=== PATIENT | female | born 1940 | race Caucasian/White ===

== ENCOUNTER 2019-07-21 16:43 | Inpatient (IN) | payer OTHER ==
--- NOTE | 2019-07-21 11:49 | R.PREADM ---
SCREENING DATE AND TIME 07/21/2019 10:47 (CDT) ANTICIPATED REHAB ADMISSION DATE 07/23/2019 REFERRING FACILITY [facility] REFERRAL DATE AND TIME 07/21/2019 10:47 (CDT) ACUTE ADMIT DATE 07/18/2019 Previous Rehabilitation(s): No. 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 Pasha Trevino M.D. [facility] [id number] [id number] NAME ERIC CASTILLO [address]ESS [address] [place] [place] [address] DATE OF 1940 AGE 79 SSN# [id number] GENDER female MARITAL STATUS RACE white ADMIT FROM 02 - [facility] PRE-HOSPITAL LIVING SETTING 01 - Home (private home/apt. board/care, assisted living, penitentiary, transitional living) HOME TYPE AND DETAILS Type of home: single family house # of steps to enter the residence: 0 # of steps within the residence: 0 # of levels in the residence: 1 PRE-HOSPITAL LIVING WITH Family/Relatives FAMILY SUPPORT Yes PRIMARY FAMILY CONTACT NAME Cesia Lima PRIMARY FAMILY CONTACT PHONE PHONE PRIMARY FAMILY CONTACT ON ADM.? no IS PRIMARY FAMILY CONTACT AUTH. REP.? no 1ST EMERGENCY CONTACT Cesia Lima 1ST CONTACT PHONE PHONE 1ST CONTACT ON ADM. no IS 1ST CONTACT AUTH. REP.? no PHONE 2ND CONTACT ON ADM.? no PATIENT EMPLOYMENT STATUS Retired (for age) PATIENT EMPLOYER No Employer PAYOR INFORMATION: 1ST PAYOR NAME Medicare 1ST PAYOR PHONE 1ST PAYOR INJURY/ILLNESS DUE TO ACCIDENT? No ANOTHER LIBERTARIAN RESPONSIBLE? No PRIMARY REHAB/ACUTE DIAGNOSIS: Sub-acute in the right superior temporal gyrus ONSET DATE 07/18/2019 REHAB IMPAIRMENT CATEGORY (PRES[place]): 01 Stroke (STR) MEETS 60% rule AFFECTED EXTREMITIES: LLE, and LUE PRIMARY DIAGNOSIS-RELATED SURGERIES: No surgeries related to the primary diagnosis were performed. COMORBID REHAB/ACUTE DIAGNOSES: - N/A afib HTN HLD Acute on chronic renal injury SUMMARY OF ACUTE HOSPITALIZATION: Pt. is a 79 yo Right-handed white female. On 07/18/2019 Pt. presented to [facility] with sudden onset of left-side weakness. On 07/18/2019 she was admitted to [facility] with diagnosis Sub-acute in the right superior temp oral gyrus . Her impairment category is Stroke 01 - Left Body (Right Brain) (01.1). Pre-morbidly, Pt. was independent/mod-I in Self-Care, Sphincter Control, Transfers Control, Locomotio n, Communication, and Social Cognition; and she had good Sphincter Control. Currently, she has deficits of Self-Care, Locomotion, Communication, Social Cognition, Endurance, Bal ance, Safety Awareness, and Transfers Control. Pt. is now referred to [facility] for acute in-patient rehabilitation in order to maximize patient's functional independence in activities of daily living, strength, ROM, and mobi lity. Patient has realistic goal of being discharged at assistance level 6-Gian to reside at Home with Fam yonis/Relatives. patient admitted July 20 with slurred speech. Patient admitted and treated for a stroke. PAST MEDICAL HISTORY Acute on chronic renal injury HLD HTN afib MEDICATION ALLERGIES: No Known Drug Allergies (NKDA) ENVIRONMENTAL ALLERGIES: - Substance Allergies None Known - Other Allergies None Known CODE STATUS: Full code WEIGHT/HEIGHT/BMI: WEIGHT 189 lbs HEIGHT 5' 6" BMI 30.5 DIET: - Diet Type Regular - Diet - Solid Texture Regular - Diet - Liquid Texture Regular - Tube Feed N/A REVIEW OF SYSTEMS: - Gen Alert and awake Lying in bed No apparent distress Oriented to: person, time, and place - Vital Signs Vital signs stable, afebrile - CVS RRR VITAL SIGNS Temperature: 96.9 F SBP/DBP: 138/82 Pulse: 95 Resp: 18 Vital signs stable, afebrile MEDICATIONS/TREATMENT: Other- See attached MAR (Medication Administration Record). CURRENT SPHINCTER CONTROL: Pre-hospital bladder status: incontinent # of bladder accidents in the last 7 days prior to screenin Pre-hospital bowel status: continent # of bowel accidents in the last 7 days prior to screenin Last Bowel Movement Date: 07/21/2019 DETAILED CURRENT FUNCTIONAL STATUS: - Bladder Bladder control device used: diaper accident frequency: Ind - No accidents in the past 7 days - Bowel accident frequency: Ind - No accidents in the past 7 days - Walking score based on distance walked: 1(<=50ft) - Wheelchair score based on distance traveled: 1(<=50ft) FUNCTIONAL STATUS: - Self-Care A. Eating Ind sup B. Grooming Ind sup C. Bathing Ind maxA D. Dressing - Upper Ind modA E. Dressing - Lower Ind maxA F. Toileting Ind Dep - Sphincter Control G: Bladder control Ind Dep H: Bowel control Ind Dep - Transfers Control I. Bed/Chair/Wheelchair Ind Ind J. Toilet Ind Brady K. Tub/Shower Ind Brady - Locomotion L. Walk/Wheelchair (C) Ind Dep L. Walk/Wheelchair (W) Ind Dep M. Stairs Ind ADNO - Communication N. Comprehension (B) Ind Brady O. Expression (B) Ind Brady - Social Cognition P. Social Interaction Ind Brady Q. Problem Solving Ind modA R. Memory Ind modA - Endurance Poor - Balance Poor - Safety Awareness Poor QI SCORES: - Self-Care A. Eating 05-Setup or clean-up assistance B. Oral hygiene 05-Setup or clean-up assistance C. Toileting hygiene 02-Substantial/maximal assistance E. Shower/bathe self 02-Substantial/maximal assistance F. Upper body dressing 03-Partial/moderate assistance G. Lower body dressing 02-Substantial/maximal assistance H. Putting on/taking off footwear 01-Dependent - Mobility A. Roll left and right 04-Supervision or touching assistance B. Sit to lying 04-Supervision or touching assistance C. Lying to sitting on side of bed 04-Supervision or touching assistance D. Sit to stand 04-Supervision or touching assistance E. Chair/nmc-ie-skpuy transfer 04-Supervision or touching assistance F. Toilet transfer 03-Partial/moderate assistance G. Car transfer 88-Not attempted due to medical condition or safety concerns I. Walk 10 feet 04-Supervision or touching assistance J. Walk 50 feet with two turns 88-Not attempted due to medical condition or safety concerns K. Walk 150 feet 88-Not attempted due to medical condition or safety concerns L. Walking 10 feet on uneven surfaces 88-Not attempted due to medical condition or safety concerns M. 1 step (curb) 88-Not attempted due to medical condition or safety concerns N. 4 steps 88-Not attempted due to medical condition or safety concerns O. 12 steps 88-Not attempted due to medical condition or safety concerns P. Picking up object 88-Not attempted due to medical condition or safety concerns R. Wheel 50 feet with two turns 88-Not attempted due to medical condition or safety concerns S. Wheel 150 feet 88-Not attempted due to medical condition or safety concerns - Bladder and Bowel Bladder continence 4-Always incontinent Bowel continence 3-Always incontinent CURRENT FUNC. DEFICITS: Self-Care, Locomotion, Communication, Social Cognition, Endurance, Balance, Safety Awareness, and Tra nsfers Control THERAPY NOTES FROM ACUTE CARE: Attached. SPECIAL NEEDS: - Safety Concerns Skin breakdown precautions needed due to skin breakdown risk PRECAUTIONS: - Weight Bearing Precaution WBAT left LE PATIENT NEEDS ACTIVE AND ONGOING THERAPEUTIC INTERVENTION OF MULTIPLE THERAPY DISCIPLINES, INCLUDING: - Occupational Therapy Cognitive Retraining. Visual Perceptual Training. - Dietary and Nutrition Adequate Nutrition. Nutritional Education. Nutritional Supplements. - Speech Therapy Cognitive Training. Expressive Language Skills. Memory Strategies. Receptive Language Skills. Speech Intelligibility Training. PATIENT NEEDS CLOSE MEDICAL SUPERVISION BY A REHABILITATION PHYSICIAN FOR: Bowel and Bladder Management Coordination of Treatment Team Medical and Co-Morbidity Management PATIENT REQUIRES 24X7 REHAB NURSING FOR MEDICAL AND FUNCTIONAL MGT. OF THE FOLLOWING DEFICITS: ADL's Ambulation Bowel and Bladder Management Cognition Communication Disease Management Medication Management Patient/Family Education Providing Safe Environment Transfers PATIENT REQUIRES INTENSIVE, COORDINATED INTERDISCIPLINARY APPROACH TO REHAB: Arranging Home Equipment/Services Discharge Planning Family Intervention/Training Skid Adzer/Case Management PATIENT REHAB POTENTIAL: Peyman CASTILLO is able and expected to receive 3 hours of individualized therapy daily on at least 5 of e very 7 days Peyman SWANNs prognosis for significant practical improvement within a reasonable period of time appea rs Good Expected level of measurable improvement will be of a practical value to Peyman CASTILLO's functional capa city or adaptations to impairments Has a viable Discharge Plan Medically appropriate; condition is sufficiently stable to participate in intensive rehab program DISCHARGE PLAN: - Estimated Length of Stay (days) 17. - Consensus on plan Discharge plan has been discussed with primary caregiver. Patient/Family is in agreement with the alonzo n. Primary caregiver is in agreement with the plan. - Patient/Family Goals Return home with assistance. - Planned Living Setting Upon Discharge Home, to live with Family/Relatives. RECOMMENDED CARE LEVEL: IRF RECOMMENDATION DETAILS: Recommended Admission to Comprehensive Rehabilitation Program to Increase Functional [place] SCREENER'S COMPLETENESS CONFIRMATION: - Screening Confirmation The patient data collection on this preadmission screening form is finished PHYSICIANS REVIEW AND ADMISSION DETERMINATION Admit - Based on my review of the Pre-Admission Screening results, in my medical judgment and experie nce, I concur with the findings and recommend admission to [facility], as this patient requires an IRF level of care. SIGNATURE PANEL: Clinical Liaison - [electronically] signed by Lay Diez on 07/21/2019 at 11:13 (CDT) Clinical Liaison - [electronically] signed by Paul Pardo PT on 07/21/2019 at 11:31 (CDT) Physician Reviewer - [electronically] signed by Dr. Pasha Trevino M.D. on 07/21/2019 at 11:48 (CDT )
[2019-07-22] MEDS ORDERED: ALBUTEROL INHALER 60 PUFF/8 GM IH PRN (18:51)
[2019-07-22] MEDS ORDERED: HYDROCODONE/APAP 5/325 MG TAB PO PRN (19:00)
[2019-07-22] MEDS ORDERED: HEPARIN 5000 UNIT/ML 1 ML VIAL SQ SCH (20:00)
[2019-07-22] MEDS ORDERED: ALPRAZOLAM 1 MG TABLET PO SCH (21:00)
[2019-07-22] MEDS: CEPHALEXIN 250 MG CAP PO SCH (21:09)
[2019-07-22] MEDS: MIRTAZAPINE 15 MG TAB PO SCH (21:09)
[2019-07-22] MEDS: FAMOTIDINE 20 MG TAB PO SCH (21:10)
[2019-07-22] MEDS: ATORVASTATIN 20 MG TAB PO SCH (21:10)
[2019-07-22] MEDS: GABAPENTIN 100 MG CAP PO SCH (21:10)
[2019-07-22] MEDS: APIXABAN 5 MG TABLET PO SCH (21:10)
[2019-07-23] MEDS: ATENOLOL 50 MG TAB PO SCH (05:15)
[2019-07-23 05:55] LABS: Absolute Lymphocytes (CBC) 1.4 K/uL (0.7-4.9); Basophils % 1.1 % (0-1.3); MPV 7.1 fL (7.6-11.3); RBC Red Blood Cell Count 4.17 M/uL (3.86-4.86)
[2019-07-23 06:11] LABS: Potassium 3.9 mmol/L (3.5-5.1)
[2019-07-23] MEDS: LEVOTHYROXINE SOD 0.1 MG TAB PO SCH (06:52)
[2019-07-23] MEDS: CEPHALEXIN 250 MG CAP PO SCH ×2 (08:00→21:31)
[2019-07-23] MEDS ORDERED: CLOPIDOGREL 75 MG TABLET PO SCH (08:00)
[2019-07-23] MEDS: APIXABAN 5 MG TABLET PO SCH ×2 (08:48→21:32)
[2019-07-23] MEDS: GABAPENTIN 100 MG CAP PO SCH ×3 (08:48→21:31)
[2019-07-23] MEDS: FAMOTIDINE 20 MG TAB PO SCH ×2 (08:48→21:31)
--- NOTE | 2019-07-23 09:29 | P.RH.PN ---
Estimated Length of Stay: 14 Expected Discharge Date: 08/04/19 Discharge Disposition Plan: Home Family Support: Yes Vital Signs: Last Vital Signs Temp 97.1 F 07/23/19 06:57 Pulse 88 07/23/19 06:57 Resp 14 07/23/19 06:57 BP 135/75 07/23/19 06:57 Pulse Ox 97 07/23/19 06:57 Laboratory: Laboratory Last Values WBC 5.6 K/uL (4.3-10.9) 07/23/19 05:33 RBC 4.17 M/uL (3.86-4.86) 07/23/19 05:33 Hgb 12.5 g/dL (12.0-15.0) 07/23/19 05:33 Hct 36.0 % (36.0-45.0) 07/23/19 05:33 MCV 86.4 fL (80-100) 07/23/19 05:33 MCH 29.9 pg (27.0-35.0) 07/23/19 05:33 MCHC 34.6 g/dL (32.0-36.0) 07/23/19 05:33 RDW 14.2 % (12.1-15.2) 07/23/19 05:33 Plt Count 281 K/uL (152-406) 07/23/19 05:33 MPV 7.1 fL (7.6-11.3) L 07/23/19 05:33 Neutrophils % 57.6 % (41.7-73.7) 07/23/19 05:33 Lymphocytes % 25.0 % (15.3-44.8) 07/23/19 05:33 Monocytes % 10.3 % (3.3-12.3) 07/23/19 05:33 Eosinophils % 6.0 % (0-4.4) H 07/23/19 05:33 Basophils % 1.1 % (0-1.3) 07/23/19 05:33 Absolute Neutrophils 3.2 K/uL (1.8-8.0) 07/23/19 05:33 Absolute Lymphocytes 1.4 K/uL (0.7-4.9) 07/23/19 05:33 Absolute Monocytes 0.6 K/uL (0.1-1.3) 07/23/19 05:33 Absolute Eosinophils 0.3 K/uL (0-0.5) 07/23/19 05:33 Absolute Basophils 0.1 K/uL (0-0.5) 07/23/19 05:33 Sodium 143 mmol/L (136-145) 07/23/19 05:33 Potassium 3.9 mmol/L (3.5-5.1) 07/23/19 05:33 Chloride 110 mmol/L (98-107) H 07/23/19 05:33 Carbon Dioxide 29 mmol/L (21-32) 07/23/19 05:33 BUN 28 mg/dL (7-18) H 07/23/19 05:33 Creatinine 1.45 mg/dL (0.55-1.3) H 07/23/19 05:33 Estimated GFR 35 mL/min (=/>90) L 07/23/19 05:33 Glucose 85 mg/dL (74-106) 07/23/19 05:33 Calcium 9.2 mg/dL (8.5-10.1) 07/23/19 05:33 Magnesium 2.0 mg/dL (1.8-2.4) 07/23/19 05:33 Albumin 3.0 g/dL (3.4-5.0) L 07/23/19 05:33 Prealbumin 14.0 mg/dL (20-40) L 07/23/19 05:33 Weight: 166 lb 14.4 oz Wound Present: No Physician Update: 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 She has a UTI and in on antibiotics. She will be evaluated by physical and speech therapy. She has afib and will be on aspirin 81 mg and Eliquis 5 mg bid. She is on mechanical soft diet. Summary: Patient's care plan and terminal worker goals have been reviewed and revised as necessary. Please see the Rehabilitation Signature page for all necessary signatures.
[2019-07-23] MEDS: ASPIRIN 81 MG CHEWABLE TABLET PO SCH (12:07)
--- NOTE | 2019-07-23 12:55 | EKG ---
Test Date: 2019-07-22 Test Time: 19:34:01 Life Skills Instructor: RT Porter MEASUREMENT RESULTS: Intervals: Rate: 93 [place]: QRSD: 104 QT: 386 QTc: 479 [place]: P: [place]: QRS: -44 T: 38 INTERPRETIVE STATEMENTS: Atrial fibrillation Left axis deviation Abnormal ECG Compared to ECG 11/11/2001 16:41:00 Left-axis deviation now present Sinus rhythm no longer present ST (T wave) deviation no longer present Electronically Signed On 07-23-19 12:54:18 CDT by Bakari Browning
--- NOTE | 2019-07-23 12:57 | R.HP ---
FACILITY: [facility] ENCOUNTER DATE AND TIME: 07/23/2019 12:48 (CDT) MR#: [id number] NAME ERIC CASTILLO ADDRESS: [address] [place] [address] CITY: [place] STATE: [place]IP [id number] PHONE: DATE OF : 1940 AGE: 79 SSN# [id number] GENDER: Female DEXTERITY Right-handed MARITAL STATUS RACE White PRE-HOSPITAL LIVING SETTING 01 - Home (private home/apt. board/care, assisted living, [facility], transitional living) PRE-HOSPITAL LIVING WITH Family/Relatives ENCOUNTER PHYSICIAN: Dr. aPsha Trevino M.D. REFERRING DOCTOR: duc Elizabeth DATE OF ADMISSION: 07/22/2019 18:14 (CDT) REFERRING FACILITY [facility] HOME TYPE AND DETAILS: Type of home: single family house # of steps to enter the residence: 0 # of steps within the residence: 0 # of levels in the residence: 1 ADMISSION DIAGNOSIS: Sub-acute in the right superior temporal gyrus ONSET DATE: 07/18/2019 PRIMARY DIAGNOSIS-RELATED SURGERIES: No surgeries related to the primary diagnosis were performed. SECONDARY/COMORBID DIAGNOSES (TIERED): - N/A afib HTN HLD Acute on chronic renal injury HISTORY OF PRESENT ILLNESS (HPI): Pt. is a 79 yo Right-handed white female. On 07/18/2019 Pt. presented to [facility] with sudden onset of left-side weakness. On 07/18/2019 she was admitted to [facility] with diagnosis Sub-acute in the right superior temp oral gyrus . Her impairment category is Stroke 01 - Left Body (Right Brain) (01.1). Pre-morbidly, Pt. was independent/mod-I in Self-Care, Sphincter Control, Transfers Control, Locomotio n, Communication, and Social Cognition; and she had good Sphincter Control. Currently, she has deficits of Self-Care, Locomotion, Communication, Social Cognition, Endurance, Bal ance, Safety Awareness, and Transfers Control. Pt. is now referred to [facility] for acute in-patient rehabilitation in order to maximize patient's functional independence in activities of daily living, strength, ROM, and mobi lity. Patient has realistic goal of being discharged at assistance level 6-Gian to reside at Home with Fam yonis/Relatives. patient admitted July 20 with slurred speech. Patient admitted and treated for a stroke. MEDICATION ALLERGIES: No Known Drug Allergies (NKDA) ENVIRONMENTAL ALLERGIES: - Substance Allergies None Known - Other Allergies None Known PAST MEDICAL HISTORY: Acute on chronic renal injury HLD HTN afib FAMILY HISTORY: Family history is not contributory. SOCIAL HISTORY: - Home Living Family/Relatives REVIEW OF SYSTEMS: - Gen No Chills Fatigue No Fever - Eyes No Double Vision No itchiness - ENMT Difficulty Swallowing - CVS No Chest Discomfort No Chest Pain No Fatigue No Weight Gain - Resp No Cough No Shortness of Breath - GI Continent No Abdominal Pain No Constipation No Diarrhea - Continent No Kidney Pain No Painful Urination No Urinary Urgency - MSK No Joint Pain Muscle Cramps Stiffness - Skin No Itching No Rash No Suspicious Lesions - Neuro Coordination Difficulty No Difficulty with Concentration No Memory Loss No Seizures Weakness - Psych No Anxiety No Depression No HIV Exposure No Persistent Infections No Seasonal Allergies - Endo No Cold/Heat Intolerance No Excessive Hunger No Excessive Thirst No Excessive Urination PHYSICAL EXAM - Gen Alert and awake Lying in bed No apparent distress Oriented to: person, time, and place - Skin No breakdown No abnormalities - Eyes No abnormalities - ENMT No abnormalities - Neck No abnormalities - CVS RRR - Chest No abnormalities - Abd Soft - GI + bowel sounds Deferred - No abnormalities - Ext No significant edema. - MSK 4+/5 weakness in left upper and lower extremity - Neuro 4/5 strength left upper and lower extremities. - Psych No abnormalities VITAL SIGNS Temperature: 96.9 F SBP/DBP: 138/82 Pulse: 95 Resp: 18 NURSING: - Shower allowing shower - Bladder care per protocol - Skin care per protocol PRECAUTIONS: - Weight Bearing Precaution WBAT left LE ACTIVITIES OOB only with supervision FUNCTIONAL STATUS: - Self-Care A. Eating Ind sup B. Grooming Ind sup C. Bathing Ind maxA D. Dressing - Upper Ind modA E. Dressing - Lower Ind maxA F. Toileting Ind Dep - Sphincter Control G: Bladder control Ind Dep H: Bowel control Ind Dep - Transfers Control I. Bed/Chair/Wheelchair Ind Ind J. Toilet Ind Brady K. Tub/Shower Ind Brady - Locomotion L. Walk/Wheelchair (C) Ind Dep L. Walk/Wheelchair (W) Ind Dep M. Stairs Ind ADNO - Communication N. Comprehension (B) Ind Brady O. Expression (B) Ind Brady - Social Cognition P. Social Interaction Ind Brady Q. Problem Solving Ind modA R. Memory Ind modA - Endurance Poor - Balance Poor - Safety Awareness Poor QI SCORES: - Self-Care A. Eating 05-Setup or clean-up assistance B. Oral hygiene 05-Setup or clean-up assistance C. Toileting hygiene 02-Substantial/maximal assistance E. Shower/bathe self 02-Substantial/maximal assistance F. Upper body dressing 03-Partial/moderate assistance G. Lower body dressing 02-Substantial/maximal assistance H. Putting on/taking off footwear 01-Dependent - Mobility A. Roll left and right 04-Supervision or touching assistance B. Sit to lying 04-Supervision or touching assistance C. Lying to sitting on side of bed 04-Supervision or touching assistance D. Sit to stand 04-Supervision or touching assistance E. Chair/[id number] transfer 04-Supervision or touching assistance F. Toilet transfer 03-Partial/moderate assistance G. Car transfer 88-Not attempted due to medical condition or safety concerns I. Walk 10 feet 04-Supervision or touching assistance J. Walk 50 feet with two turns 88-Not attempted due to medical condition or safety concerns K. Walk 150 feet 88-Not attempted due to medical condition or safety concerns L. Walking 10 feet on uneven surfaces 88-Not attempted due to medical condition or safety concerns M. 1 step (curb) 88-Not attempted due to medical condition or safety concerns N. 4 steps 88-Not attempted due to medical condition or safety concerns O. 12 steps 88-Not attempted due to medical condition or safety concerns P. Picking up object 88-Not attempted due to medical condition or safety concerns R. Wheel 50 feet with two turns 88-Not attempted due to medical condition or safety concerns S. Wheel 150 feet 88-Not attempted due to medical condition or safety concerns - Bladder and Bowel Bladder continence 4-Always incontinent Bowel continence 3-Always incontinent CURRENT FUNC. DEFICITS: Self-Care, Locomotion, Communication, Social Cognition, Endurance, Balance, Safety Awareness, and Tra nsfers Control MEDICATIONS: - Other See attached MAR (Medication Administration Record) ASSESSMENT: Pt. is a 79 yo Right-handed white female.On 07/18/2019 Pt. presented to [facility] with sudden o nset of left-side weakness.On 07/18/2019 she was admitted to [facility] with diagnosis Sub-acute in the right superior temporal gyrus .Her impairment category is Stroke 01 - Left Body (Right Brain ) (01.1).Pre-morbidly, Pt. was independent/mod-I in Self-Care, Sphincter Control, Transfers Control, Locomotion, Communication, and Social Cognition; and she had good Sphincter Control.Currently, she alvarez s deficits of Self-Care, Locomotion, Communication, Social Cognition, Endurance, Balance, Safety Awar eness, and Transfers Control.Pt. is now referred to [facility] for acute in-pa tient rehabilitation in order to maximize patient's functional independence in activities of daily li ving, strength, ROM, and mobility.- Rehab Goal Patient has realistic goal of being discharged at assistance level 6-Gian to reside at Home with Fam yonis/Relatives. patient admitted July 20 with slurred speech. Patient admitted and treated for a stroke.REHAB PL AN: for Dementia, TBI, Stroke, or others - Physical Therapy Gait dysfunction - to improve, our physical therapists will perform initial evaluation of pt's status upon admission and devise an individualized program for Gait Training, and Wheel Chair mobility Inability to transfer - to improve, our physical therapists will perform initial evaluation of pt's s tatus upon admission and devise an individualized program for Bed mobility Need for home safety evaluation - to improve, our physical therapists will perform initial evaluation of pt's status upon admission and devise an individualized program for Home Evaluation Need in caregiver upon discharge - to improve, our physical therapists will perform initial evaluatio n of pt's status upon admission and devise an individualized program for Caregiver Training New precaution - to improve, our physical therapists will perform initial evaluation of pt's status u rabia admission and devise an individualized program for Patient precaution education Edema - to improve, our physical therapists will perform initial evaluation of pt's status upon admi ssion and devise an individualized program for Elevation Training, and Lymphedema Therapy Poor balance - to improve, our physical therapists will perform initial evaluation of pt's status upo n admission and devise an individualized program for Balance Training Poor endurance - to improve, our physical therapists will perform initial evaluation of pt's status u rabia admission and devise an individualized program for Endurance Training Weakness - to improve, our physical therapists will perform initial evaluation of pt's status upon ad mission and devise an individualized program for Aquatic Therapy, Neuromuscular Reeducation, and Stre ngthening Achieving independence - to improve, our physical therapists will perform initial evaluation of pt's status upon admission and devise an individualized program for Community Reintegration Activities - Occupational Therapy ADL deficits - to improve, our occupation therapists will perform initial evaluation of pt's status u rabia admission and devise an individualized program for Bathing, Bed mobility, Community Reintegration , Cooking, Dressing, Eating, Fine Motor Skills, Grooming, Homemaking, Kitchen Mobility, Laundry, Ann-Marie ent Education, Safety Awareness, Splinting - Positioning, Transfers(Toilet, Tub, Shower), and Wheel C hair Management Cognitive deficits - to improve, our occupation therapists will perform initial evaluation of pt's st atus upon admission and devise an individualized program for Cognition - orientation Need for home care and home health aides teacher - to improve, our occupation therapists will perform initial evaluation of pt's s tatus upon admission and devise an individualized program for Caregiver Training Weakness - to improve, our occupation therapists will perform initial evaluation of pt's status upon admission and devise an individualized program for Aquatic Therapy, Balance, Endurance, UE ROM, and U E strengthening MEDICAL PLAN: - Diet Type Start Regular - Diet - Liquid Texture Start Regular - Tube Feed Start N/A - Bladder care per protocol - Weight Bearing Precaution WBAT left LE - Skin care per protocol - Other See attached MAR (Medication Administration Record) - Diet - Solid Texture Regular - Shower shower DISCHARGE PLAN: - Estimated Length of Stay (days) 17. - Consensus on plan Discharge plan has been discussed with primary caregiver. Patient/Family is in agreement with the alonzo n. Primary caregiver is in agreement with the plan. - Patient/Family Goals Return home with assistance. - Planned Living Setting Upon Discharge Home, to live with Family/Relatives. SIGNATURE PANEL: (CDT)
--- NOTE | 2019-07-23 12:59 | PAPE ---
PATIENT: [facility] MR# [id number] REFERRING DOCTOR duc Elizabeth EVALUATION DATE AND TIME 07/23/2019 12:57 (CDT) NAME ERIC CASTILLO DATE OF 1940 AGE 79 PHONE SSN# [id number] GENDER female EVALUATING PHYSICIAN Dr. Pasha Trevino M.D. ADMISSION DIAGNOSIS: Sub-acute in the right superior temporal gyrus ONSET DATE 07/18/2019 SECONDARY/COMORBID DIAGNOSES TIERED: - N/A afib HTN HLD Acute on chronic renal injury POST-ADMISSION FUNCTIONAL/MEDICAL STATUS: - Bladder Same Bladder control device used: diaper Same accident frequency: Ind - No accidents in the past 7 days - Bowel Same accident frequency: Ind - No accidents in the past 7 days - Walking Same score based on distance walked: 1(<=50ft) - Wheelchair Same score based on distance traveled: 1(<=50ft) STATUS CHANGE EVALUATION: No change in Functional or Medical Status is identified compared with Pre-Admission screening. PATIENT NEEDS CLOSE MEDICAL SUPERVISION BY A REHABILITATION PHYSICIAN FOR: Bowel and Bladder Management Coordination of Treatment Team Medical and Co-Morbidity Management PATIENT REQUIRES 24X7 REHAB NURSING FOR MEDICAL AND FUNCTIONAL MGT. OF THE FOLLOWING DEFICITS: ADL's Ambulation Bowel and Bladder Management Cognition Communication Disease Management Medication Management Patient/Family Education Providing Safe Environment Transfers PATIENT REQUIRES INTENSIVE, COORDINATED INTERDISCIPLINARY APPROACH TO REHAB: Arranging Home Equipment/Services Discharge Planning Family Intervention/Training Sponge Maker/Case Management LIST OF IDENTIFIED AND POTENTIAL PROBLEMS: Alteration in leisure activities Bladder, Incontinence Bowel, Incontinence Infection, Actual or Potential Mobility Impaired Pain, Alteration in Comfort Self Care Deficit Skin Integrity, Actual or Potential Urinary Tract Infection (UTI), Actual or Potential PATIENT COULD BE AT RISK FOR COMPLICATIONS FROM ADVERSE MEDICAL CONDITIONS DUE TO HIS/HER COMORBIDITI ES AND THE RIGORS OF THE INTENSIVE REHABILLITATION PROGRAM. METHODS OR INTERVENTIONS TO AVOID COMPLIC ATIONS INCLUDE: - Bleeding Stroke patients assessed for lethargy or change in status. - Infection Clinical staff to assess and manage the signs and symptoms of infection including fever, redness, war mth, etc. - Urinary Tract Infection - Aspiration Clinical staff will assess and manage coughing, drooling, congestion. - Falls Patient will be evaluated for Fall Precautions and will be placed on Fall Precautions as indicated pe r protocol. - Skin Breakdown Nursing will assess skin daily using assessment tool and will place on Skin Breakdown Precautions as indicated per protocol. - Pain Clinical staff may employ non-medication methods such as massage, distraction, decrease stimulus, etc . as needed. Clinical staff will assess patient's pain level every shift per protocol to assess and e nsure pain management effectiveness. Medications will be given and the pain level re-assessed. PRELIMINARY PLAN OF CARE: - Physical Therapy Patient needs Physical Therapy for a daily minimum of 1.5 hours at least 5 out of 7 days, to improve: Mobility, Strengthening, Transfers, Stretching, ROM, Endurance, Ability to manage stairs, Gait, and Balance. - Speech Therapy Patient needs Speech Therapy for a daily minimum of 0.5 hours at least 5 out of 7 days, to improve: S wallowing, Cognition, Language Skills, and Compensatory Strategies. - Rehabilitation Nursing Patient requires 24x7 Rehabilitation Nursing for: Pain Issues, Identifying and preventing risk factor s, Monitoring and reporting current medical conditions, Assisting with ambulation and transfer, Naveen ting with all ADL-s, Teaching patients about disease process and medications, Family teaching, Provid ing safe environment, Bowel and Bladder Issues, Skin Integrity, and Medication Management. Patient needs Sponge Maker and/or Case Management for: Discharge Planning, Arranging Home Equipmen t or Services, and Family Interventions. - Dietary and Nutrition Services Patient needs Dietary and Nutrition Services for: Adequate Nutrition, Nutritional Supplements, and Nu tritional Education. - Occupational Therapy Patient needs Occupational Therapy for a daily minimum of 1.5 hours at least 5 out of 7 days, to impr ove Activities of Daily Living, including: Eating, Grooming, Bathing, Dressing, Toileting, Toilet Tra nsfers, Community Reintegration, Higher functional activities, Adaptive Equipment, Splinting, Househo ld Tasks, and Other activities as determined. POTENTIAL FUNCTIONAL GOALS FOR PATIENT TO ACHIEVE BY DISCHARGE: - Safety Precaution Patient will remain free from falls or injury at time of discharge. - Bed Mobility Patient will perform bed mobility at 4-Brady level of assistance. - Transfers Patient will complete transfers from bed to chair at 4-Brady level of assistance. - Mobility Patient will ambulate 150 ft with 4-Brady level of assistance with RW. PATIENT REHAB POTENTIAL PadmajaTr CASTILLO is able and expected to receive 3 hours of individualized therapy daily on at least 5 of e very 7 days L. BARBREE's prognosis for significant practical improvement within a reasonable period of time appea rs Good Expected level of measurable improvement will be of a practical value to [place] functional capa city or adaptations to impairments Has a viable Discharge Plan Medically appropriate; condition is sufficiently stable to participate in intensive rehab program DISCHARGE PLAN: - Estimated Length of Stay (days) 17. - Consensus on plan Discharge plan has been discussed with primary caregiver. Patient/Family is in agreement with the alonzo n. Primary caregiver is in agreement with the plan. - Patient/Family Goals Return home with assistance. - Planned Living Setting Upon Discharge Home, to live with Family/Relatives. CONCLUSION ON REHABILITATION NECESSITY: I have evaluated patient's pre-admission functional status and, comparing it to the patient's post-ad mission functional status now, I conclude that the pre-admission assessment was accurate. Patient's c ondition on admission supports the medical necessity of admission to IR[facility]. It is safe to proceed with patient's therapy program. SIGNATURE PANEL: (CDT)
--- NOTE | 2019-07-23 15:16 | RAD REPORT ---
EXAM DESCRIPTION: RAD - Barium Swallow Modified - 07/23/2019 3:05 pm CLINICAL HISTORY: dysphagia, s/p stroke COMPARISON: No comparisons TECHNIQUE: The patient was given liquid, semi-solid and solid forms of barium. Lateral view fluorosc opic imaging was performed in conjunction with speech pathology service. FINDINGS: laryngeal pentration : cleared by thin by straw and nectar (cup sip) pharyngeal residue:: vallecular moderate with honey , mild with all others , pyriform mild with all , posterior wall mild with all other: 1 sec swallow delay , min esophageal stasis Total fluoroscopy time: 2 minutes and 34 seconds
--- NOTE | 2019-07-23 15:17 | RAD REPORT ---
EXAM DESCRIPTION: RAD - Chest Single View - 07/23/2019 2:59 pm CLINICAL HISTORY: r/o aspiration pnuemonia Chest pain. COMPARISON: No comparisons FINDINGS: Portable technique limits examination quality. The lungs are grossly clear. The heart is mildly prominent in size. No displaced fractures. IMPRESSION: No acute intrathoracic process suspected.
[2019-07-23] MEDS: INFLUENZA VACCINE (for 3y+) 0.5 ML DOSE IMVAC ONE ×2 (19:00→22:00)
[2019-07-23] MEDS ORDERED: PROMOD 30 ML DOSE PO SCH (20:00)
[2019-07-23] MEDS: DOCUSATE NA/SENNA CONC 1 TAB PO PRN (21:31)
[2019-07-23] MEDS: ATORVASTATIN 20 MG TAB PO SCH (21:31)
[2019-07-23] MEDS: MIRTAZAPINE 15 MG TAB PO SCH (21:32)
--- NOTE | 2019-07-24 02:14 | FAST ---
SHIFT START DATE/TIME: 07/23/2019 19:00 (CDT) SHIFT END DATE/TIME: 07/24/2019 07:00 (CDT) NAME ERIC CASTILLO DATE OF : 1940 DATE OF ADMISSION: 07/22/2019 18:14 (CDT) PHONE: AGE: 79 N# [id number] GENDER: Female ENCOUNTER PHYSICIAN: Dr. Pasha Trevino M.D. ADMISSION DIAGNOSIS: - Stroke 01 - Left Body (Right Brain) (01.1) Sub-acute in the right superior temporal gyrus . EATING: Not assessed/no information CODE: - ORAL HYGIENE: Not assessed/no information CODE: - TOILETING HYGIENE: TOILETING HYGIENE - STEP 1: Does the patient complete the activity by him/herself with no assistance (physical, verbal/nonverbal cueing, setup/clean-up)? No. TOILETING HYGIENE - STEP 2: Does the patient need only setup/clean-up assistance from one helper? Yes. 1. [id number] ADMISSION PERFORMANCE: Setup or clean-up assistance CODE: 05 BATHING: Not assessed/no information CODE: - DRESSING - UPPER BODY: Not assessed/no information CODE: - DRESSING - LOWER BODY: Not assessed/no information CODE: - PUTTING ON/TAKING OFF FOOTWEAR: Not assessed/no information CODE: - ROLL LEFT AND RIGHT: ROLL LEFT AND RIGHT - STEP 1: Does the patient complete the activity by him/herself with no assistance (physical, verbal/nonverbal cueing, setup/clean-up)? No. ROLL LEFT AND RIGHT - STEP 2: Does the patient need only setup/clean-up assistance from one helper? Yes. ROLL LEFT AND RIGHT - STEP 3: Does the patient need only verbal/nonverbal cueing or touching/steadying/contact guard assistance fro m one helper? Yes. 1. [id number] ADMISSION PERFORMANCE: Supervision or touching assistance CODE: 04 SIT TO LYING: SIT TO LYING - STEP 1: Does the patient complete the activity by him/herself with no assistance (physical, verbal/nonverbal cueing, setup/clean-up)? No. SIT TO LYING - STEP 2: Does the patient need only setup/clean-up assistance from one helper? No. SIT TO LYING - STEP 3: Does the patient need only verbal/nonverbal cueing or touching/steadying/contact guard assistance fro m one helper? Yes. 1. [id number] ADMISSION PERFORMANCE: Supervision or touching assistance CODE: 04 LYING TO SITTING: LYING TO SITTING ON SIDE OF BED - STEP 1: Does the patient complete the activity by him/herself with no assistance (physical, verbal/nonverbal cueing, setup/clean-up)? No. LYING TO SITTING ON SIDE OF BED - STEP 2: Does the patient need only setup/clean-up assistance from one helper? Yes. 1. [id number] ADMISSION PERFORMANCE: Setup or clean-up assistance CODE: 05 SIT TO STAND: SIT TO STAND - STEP 1: Does the patient complete the activity by him/herself with no assistance (physical, verbal/nonverbal cueing, setup/clean-up)? No. SIT TO STAND - STEP 2: Does the patient need only setup/clean-up assistance from one helper? Yes. 1. [id number] ADMISSION PERFORMANCE: Setup or clean-up assistance CODE: 05 TRANSFERS: BED, CHAIR: CHAIR/[id number] TRANSFER - STEP 1: Does the patient complete the activity by him/herself with no assistance (physical, verbal/nonverbal cueing, setup/clean-up)? No. CHAIR/[id number] TRANSFER - STEP 2: Does the patient need only setup/clean-up assistance from one helper? No. CHAIR/[id number] TRANSFER - STEP 3: Does the patient need only verbal/nonverbal cueing or touching/steadying/contact guard assistance fro m one helper? Yes. 1. [id number] ADMISSION PERFORMANCE: Supervision or touching assistance CODE: 04 TRANSFER TOILET: TOILET TRANSFER - STEP 1: Does the patient complete the activity by him/herself with no assistance (physical, verbal/nonverbal cueing, setup/clean-up)? No. TOILET TRANSFER - STEP 2: Does the patient need only setup/clean-up assistance from one helper? Yes. 1. [id number] ADMISSION PERFORMANCE: Setup or clean-up assistance CODE: 05 TRANSFERS: CAR: Not assessed/no information CODE: - WALK 10 FEET: Not assessed/no information CODE: - 1 STEP (CURB): Not assessed/no information CODE: - DOES THE PATIENT USE A WHEELCHAIR/SCOOTER? Q1. DOES THE PATIENT USE A WHEELCHAIR/SCOOTER?: Yes CODE: 1 WHEEL 50 FEET WITH TWO TURNS: Not assessed/no information CODE: - INDICATE THE TYPE OF WHEELCHAIR/SCOOTER USED: CODE: EXPR WHEEL 150 FEET: Not assessed/no information CODE: - INDICATE THE TYPE OF WHEELCHAIR/SCOOTER USED: CODE: EXPR BLADDER AND BOWEL: H350. BLADDER CONTINENCE (3-DAY ASSESSMENT PERIOD): Always continent (no documented incontinence) CODE: 0 H400. BOWEL CONTINENCE (3-DAY ASSESSMENT PERIOD): Always continent CODE: 0
[2019-07-24] MEDS: ATENOLOL 50 MG TAB PO SCH (05:09)
[2019-07-24] MEDS: LEVOTHYROXINE SOD 0.1 MG TAB PO SCH (07:02)
[2019-07-24] MEDS: CEPHALEXIN 250 MG CAP PO SCH ×2 (08:00→20:16)
[2019-07-24] MEDS: ASPIRIN 81 MG CHEWABLE TABLET PO SCH (08:50)
[2019-07-24] MEDS: APIXABAN 5 MG TABLET PO SCH ×2 (08:50→20:17)
[2019-07-24] MEDS: GABAPENTIN 100 MG CAP PO SCH ×3 (08:50→20:16)
[2019-07-24] MEDS: FAMOTIDINE 20 MG TAB PO SCH ×2 (08:51→20:16)
--- NOTE | 2019-07-24 10:28 | FAST ---
SHIFT START DATE/TIME: 07/23/2019 07:00 (CDT) SHIFT END DATE/TIME: 07/23/2019 19:00 (CDT) NAME ERIC CASTILLO DATE OF : 1940 DATE OF ADMISSION: 07/22/2019 18:14 (CDT) PHONE: AGE: 79 N# [id number] GENDER: Female ENCOUNTER PHYSICIAN: Dr. Pasha Trevino M.D. ADMISSION DIAGNOSIS: - Stroke 01 - Left Body (Right Brain) (01.1) Sub-acute in the right superior temporal gyrus . EATING: EATING - STEP 1: Does the patient complete the activity by him/herself with no assistance (physical, verbal/nonverbal cueing, setup/clean-up)? No. EATING - STEP 2: Does the patient need only setup/clean-up assistance from one helper? No. EATING - STEP 3: Does the patient need only verbal/nonverbal cueing or touching/steadying/contact guard assistance fro m one helper? No. EATING - STEP 4: Does the patient need physical assistance - for example lifting or trunk support from one helper - wi th the helper providing less than half of the effort? Yes. 1. [id number] ADMISSION PERFORMANCE: Partial/moderate assistance CODE: 03 ORAL HYGIENE: ORAL HYGIENE - STEP 1: Does the patient complete the activity by him/herself with no assistance (physical, verbal/nonverbal cueing, setup/clean-up)? No. ORAL HYGIENE - STEP 2: Does the patient need only setup/clean-up assistance from one helper? No. ORAL HYGIENE - STEP 3: Does the patient need only verbal/nonverbal cueing or touching/steadying/contact guard assistance fro m one helper? Yes. 1. [id number] ADMISSION PERFORMANCE: Supervision or touching assistance CODE: 04 TOILETING HYGIENE: TOILETING HYGIENE - STEP 1: Does the patient complete the activity by him/herself with no assistance (physical, verbal/nonverbal cueing, setup/clean-up)? No. TOILETING HYGIENE - STEP 2: Does the patient need only setup/clean-up assistance from one helper? No. TOILETING HYGIENE - STEP 3: Does the patient need only verbal/nonverbal cueing or touching/steadying/contact guard assistance fro m one helper? No. TOILETING HYGIENE - STEP 4: Does the patient need physical assistance - for example lifting or trunk support from one helper - wi th the helper providing less than half of the effort? Yes. 1. [id number] ADMISSION PERFORMANCE: Partial/moderate assistance CODE: 03 BATHING: Not assessed/no information CODE: - DRESSING - UPPER BODY: Not assessed/no information CODE: - DRESSING - LOWER BODY: Not assessed/no information CODE: - PUTTING ON/TAKING OFF FOOTWEAR: Not assessed/no information CODE: - ROLL LEFT AND RIGHT: Not assessed/no information CODE: - SIT TO LYING: Not assessed/no information CODE: - LYING TO SITTING: Not assessed/no information CODE: - SIT TO STAND: Not assessed/no information CODE: - TRANSFERS: BED, CHAIR: Not assessed/no information CODE: - TRANSFER TOILET: Not assessed/no information TOILET TRANSFER - STEP 1: Does the patient complete the activity by him/herself with no assistance (physical, verbal/nonverbal cueing, setup/clean-up)? No. TRANSFERS: CAR: Not assessed/no information CODE: - WALK 10 FEET: Not assessed/no information CODE: - 1 STEP (CURB): Not assessed/no information CODE: - PICKING UP OBJECT: Not assessed/no information CODE: - DOES THE PATIENT USE A WHEELCHAIR/SCOOTER? CODE: EXPR WHEEL 50 FEET WITH TWO TURNS: Not assessed/no information CODE: - INDICATE THE TYPE OF WHEELCHAIR/SCOOTER USED: CODE: EXPR WHEEL 150 FEET: Not assessed/no information CODE: - INDICATE THE TYPE OF WHEELCHAIR/SCOOTER USED: CODE: EXPR BLADDER AND BOWEL: H350. BLADDER CONTINENCE (3-DAY ASSESSMENT PERIOD): Always continent (no documented incontinence) CODE: 0 H400. BOWEL CONTINENCE (3-DAY ASSESSMENT PERIOD): Always continent CODE: 0 SIGNATURE PANEL: The following modified sections: 1. [id number] Admission Performance, 1. [id number] Admission Performance, 1. [id number] Admission Performance, 1. [id number] Admission Performance, Code, H350. Bladder Continence (3 -day assessment period), H400. Bowel Continence (3-day assessment period) were [electronically] jing d by Dmitri Canales on Sat Jul 24 2019 10:28:10 GMT-0500 (Central Daylight Time)
--- NOTE | 2019-07-24 10:32 | FAST ---
SHIFT START DATE/TIME: 07/24/2019 07:00 (CDT) SHIFT END DATE/TIME: 07/24/2019 19:00 (CDT) NAME ERIC CASTILLO DATE OF : 1940 DATE OF ADMISSION: 07/22/2019 18:14 (CDT) PHONE: AGE: 79 N# [id number] GENDER: Female ENCOUNTER PHYSICIAN: Dr. Pasha Trevino M.D. ADMISSION DIAGNOSIS: - Stroke 01 - Left Body (Right Brain) (01.1) Sub-acute in the right superior temporal gyrus . EATING: EATING - STEP 1: Does the patient complete the activity by him/herself with no assistance (physical, verbal/nonverbal cueing, setup/clean-up)? No. EATING - STEP 2: Does the patient need only setup/clean-up assistance from one helper? No. EATING - STEP 3: Does the patient need only verbal/nonverbal cueing or touching/steadying/contact guard assistance fro m one helper? Yes. 1. [id number] ADMISSION PERFORMANCE: Supervision or touching assistance CODE: 04 ORAL HYGIENE: ORAL HYGIENE - STEP 1: Does the patient complete the activity by him/herself with no assistance (physical, verbal/nonverbal cueing, setup/clean-up)? No. ORAL HYGIENE - STEP 2: Does the patient need only setup/clean-up assistance from one helper? No. ORAL HYGIENE - STEP 3: Does the patient need only verbal/nonverbal cueing or touching/steadying/contact guard assistance fro m one helper? Yes. 1. [id number] ADMISSION PERFORMANCE: Supervision or touching assistance CODE: 04 TOILETING HYGIENE: TOILETING HYGIENE - STEP 1: Does the patient complete the activity by him/herself with no assistance (physical, verbal/nonverbal cueing, setup/clean-up)? No. TOILETING HYGIENE - STEP 2: Does the patient need only setup/clean-up assistance from one helper? No. TOILETING HYGIENE - STEP 3: Does the patient need only verbal/nonverbal cueing or touching/steadying/contact guard assistance fro m one helper? Yes. 1. [id number] ADMISSION PERFORMANCE: Supervision or touching assistance CODE: 04 BATHING: Not assessed/no information CODE: - DRESSING - UPPER BODY: Not assessed/no information CODE: - DRESSING - LOWER BODY: Not assessed/no information CODE: - PUTTING ON/TAKING OFF FOOTWEAR: Not assessed/no information CODE: - ROLL LEFT AND RIGHT: Not assessed/no information CODE: - SIT TO LYING: Not assessed/no information CODE: - LYING TO SITTING: Not assessed/no information CODE: - SIT TO STAND: Not assessed/no information CODE: - TRANSFERS: BED, CHAIR: Not assessed/no information CODE: - TRANSFER TOILET: TOILET TRANSFER - STEP 1: Does the patient complete the activity by him/herself with no assistance (physical, verbal/nonverbal cueing, setup/clean-up)? No. TOILET TRANSFER - STEP 2: Does the patient need only setup/clean-up assistance from one helper? No. TOILET TRANSFER - STEP 3: Does the patient need only verbal/nonverbal cueing or touching/steadying/contact guard assistance fro m one helper? No. TOILET TRANSFER - STEP 4: Does the patient need physical assistance - for example lifting or trunk support from one helper - wi th the helper providing less than half of the effort? Yes. 1. [id number] ADMISSION PERFORMANCE: Partial/moderate assistance CODE: 03 TRANSFERS: CAR: Not assessed/no information CODE: - WALK 10 FEET: Not assessed/no information CODE: - 1 STEP (CURB): Not assessed/no information CODE: - PICKING UP OBJECT: Not assessed/no information CODE: - DOES THE PATIENT USE A WHEELCHAIR/SCOOTER? CODE: EXPR WHEEL 50 FEET WITH TWO TURNS: Not assessed/no information CODE: - INDICATE THE TYPE OF WHEELCHAIR/SCOOTER USED: CODE: EXPR WHEEL 150 FEET: Not assessed/no information CODE: - INDICATE THE TYPE OF WHEELCHAIR/SCOOTER USED: CODE: EXPR BLADDER AND BOWEL: H350. BLADDER CONTINENCE (3-DAY ASSESSMENT PERIOD): Always continent (no documented incontinence) CODE: 0 H400. BOWEL CONTINENCE (3-DAY ASSESSMENT PERIOD): Always continent CODE: 0 SIGNATURE PANEL: The following modified sections: 1. [id number] Admission Performance, 1. [id number] Admission Performance, 1. PA5028G Admission Performance, 1. [id number] Admission Performance, Code, H350. Bladder Continence (3 -day assessment period), H400. Bowel Continence (3-day assessment period) were [electronically] jing d by Dmitri Canales on Sat Jul 24 2019 10:31:06 GMT-0500 (Central Daylight Time)
[2019-07-24] MEDS: DOCUSATE NA/SENNA CONC 1 TAB PO PRN (20:16)
[2019-07-24] MEDS: ATORVASTATIN 20 MG TAB PO SCH (20:16)
[2019-07-24] MEDS: MIRTAZAPINE 15 MG TAB PO SCH (20:16)
[2019-07-24] MEDS: MELATONIN 3 MG TABLET PO PRN (20:25)
[2019-07-25] MEDS: LEVOTHYROXINE SOD 0.1 MG TAB PO SCH (06:33)
[2019-07-25] MEDS: ASPIRIN 81 MG CHEWABLE TABLET PO SCH (08:28)
[2019-07-25] MEDS: METOPROLOL TAR 25 MG TAB PO SCH ×2 (08:28→17:00)
[2019-07-25] MEDS: GABAPENTIN 100 MG CAP PO SCH ×3 (08:29→20:47)
[2019-07-25] MEDS: FAMOTIDINE 20 MG TAB PO SCH ×2 (08:29→20:46)
[2019-07-25] MEDS: APIXABAN 5 MG TABLET PO SCH ×2 (08:29→20:46)
[2019-07-25] MEDS: CEPHALEXIN 250 MG CAP PO SCH ×2 (08:29→20:46)
[2019-07-25] MEDS ORDERED: BISACODYL 10 MG RECTAL SUPP PR PRN (16:07)
[2019-07-25] MEDS ORDERED: FLEET ENEMA ADULT PR PRN (16:08)
[2019-07-25] MEDS: ALPRAZOLAM 1 MG TABLET PO PRN (16:59)
[2019-07-25] MEDS: ATORVASTATIN 20 MG TAB PO SCH (20:46)
[2019-07-25] MEDS: MIRTAZAPINE 15 MG TAB PO SCH (20:47)
[2019-07-26] MEDS: METOPROLOL TAR 25 MG TAB PO SCH ×2 (05:33→18:11)
[2019-07-26] MEDS: LEVOTHYROXINE SOD 0.1 MG TAB PO SCH (05:34)
[2019-07-26] MEDS: ASPIRIN 81 MG CHEWABLE TABLET PO SCH (07:40)
[2019-07-26] MEDS: FAMOTIDINE 20 MG TAB PO SCH ×2 (07:41→20:17)
[2019-07-26] MEDS: CEPHALEXIN 250 MG CAP PO SCH ×2 (07:41→20:17)
[2019-07-26] MEDS: APIXABAN 5 MG TABLET PO SCH ×2 (07:45→20:17)
[2019-07-26] MEDS: GABAPENTIN 100 MG CAP PO SCH ×3 (08:00→20:17)
--- NOTE | 2019-07-26 13:22 | FAST ---
SHIFT START DATE/TIME: 07/26/2019 07:00 (CDT) SHIFT END DATE/TIME: 07/26/2019 19:00 (CDT) NAME ERIC CASTILLO DATE OF : 1940 DATE OF ADMISSION: 07/22/2019 18:14 (CDT) PHONE: AGE: 79 N# [id number] GENDER: Female ENCOUNTER PHYSICIAN: Dr. Pasha Trevino M.D. ADMISSION DIAGNOSIS: - Stroke 01 - Left Body (Right Brain) (01.1) Sub-acute in the right superior temporal gyrus . EATING: EATING - STEP 1: Does the patient complete the activity by him/herself with no assistance (physical, verbal/nonverbal cueing, setup/clean-up)? No. EATING - STEP 2: Does the patient need only setup/clean-up assistance from one helper? No. EATING - STEP 3: Does the patient need only verbal/nonverbal cueing or touching/steadying/contact guard assistance fro m one helper? Yes. 1. [id number] ADMISSION PERFORMANCE: Supervision or touching assistance CODE: 04 ORAL HYGIENE: ORAL HYGIENE - STEP 1: Does the patient complete the activity by him/herself with no assistance (physical, verbal/nonverbal cueing, setup/clean-up)? No. ORAL HYGIENE - STEP 2: Does the patient need only setup/clean-up assistance from one helper? No. ORAL HYGIENE - STEP 3: Does the patient need only verbal/nonverbal cueing or touching/steadying/contact guard assistance fro m one helper? Yes. 1. [id number] ADMISSION PERFORMANCE: Supervision or touching assistance CODE: 04 TOILETING HYGIENE: TOILETING HYGIENE - STEP 1: Does the patient complete the activity by him/herself with no assistance (physical, verbal/nonverbal cueing, setup/clean-up)? No. TOILETING HYGIENE - STEP 2: Does the patient need only setup/clean-up assistance from one helper? No. TOILETING HYGIENE - STEP 3: Does the patient need only verbal/nonverbal cueing or touching/steadying/contact guard assistance fro m one helper? Yes. 1. [id number] ADMISSION PERFORMANCE: Supervision or touching assistance CODE: 04 BATHING: Not assessed/no information CODE: - DRESSING - UPPER BODY: Not assessed/no information CODE: - DRESSING - LOWER BODY: DRESSING - LOWER BODY - STEP 1: Does the patient complete the activity by him/herself with no assistance (physical, verbal/nonverbal cueing, setup/clean-up)? No. DRESSING - LOWER BODY - STEP 2: Does the patient need only setup/clean-up assistance from one helper? No. DRESSING - LOWER BODY - STEP 3: Does the patient need only verbal/nonverbal cueing or touching/steadying/contact guard assistance fro m one helper? Yes. 1. [id number] ADMISSION PERFORMANCE: Supervision or touching assistance CODE: 04 PUTTING ON/TAKING OFF FOOTWEAR: FOOTWEAR - STEP 1: Does the patient complete the activity by him/herself with no assistance (physical, verbal/nonverbal cueing, setup/clean-up)? No. FOOTWEAR - STEP 2: Does the patient need only setup/clean-up assistance from one helper? No. FOOTWEAR - STEP 3: Does the patient need only verbal/nonverbal cueing or touching/steadying/contact guard assistance fro m one helper? Yes. 1. [id number] ADMISSION PERFORMANCE: Supervision or touching assistance CODE: 04 ROLL LEFT AND RIGHT: ROLL LEFT AND RIGHT - STEP 1: Does the patient complete the activity by him/herself with no assistance (physical, verbal/nonverbal cueing, setup/clean-up)? No. ROLL LEFT AND RIGHT - STEP 2: Does the patient need only setup/clean-up assistance from one helper? No. ROLL LEFT AND RIGHT - STEP 3: Does the patient need only verbal/nonverbal cueing or touching/steadying/contact guard assistance fro m one helper? Yes. 1. [id number] ADMISSION PERFORMANCE: Supervision or touching assistance CODE: 04 SIT TO LYING: SIT TO LYING - STEP 1: Does the patient complete the activity by him/herself with no assistance (physical, verbal/nonverbal cueing, setup/clean-up)? No. SIT TO LYING - STEP 2: Does the patient need only setup/clean-up assistance from one helper? No. SIT TO LYING - STEP 3: Does the patient need only verbal/nonverbal cueing or touching/steadying/contact guard assistance fro m one helper? Yes. 1. [id number] ADMISSION PERFORMANCE: Supervision or touching assistance CODE: 04 LYING TO SITTING: LYING TO SITTING ON SIDE OF BED - STEP 1: Does the patient complete the activity by him/herself with no assistance (physical, verbal/nonverbal cueing, setup/clean-up)? No. LYING TO SITTING ON SIDE OF BED - STEP 2: Does the patient need only setup/clean-up assistance from one helper? No. LYING TO SITTING ON SIDE OF BED - STEP 3: Does the patient need only verbal/nonverbal cueing or touching/steadying/contact guard assistance fro m one helper? Yes. 1. [id number] ADMISSION PERFORMANCE: Supervision or touching assistance CODE: 04 SIT TO STAND: SIT TO STAND - STEP 1: Does the patient complete the activity by him/herself with no assistance (physical, verbal/nonverbal cueing, setup/clean-up)? No. SIT TO STAND - STEP 2: Does the patient need only setup/clean-up assistance from one helper? No. SIT TO STAND - STEP 3: Does the patient need only verbal/nonverbal cueing or touching/steadying/contact guard assistance fro m one helper? Yes. 1. [id number] ADMISSION PERFORMANCE: Supervision or touching assistance CODE: 04 TRANSFERS: BED, CHAIR: CHAIR/[id number] TRANSFER - STEP 1: Does the patient complete the activity by him/herself with no assistance (physical, verbal/nonverbal cueing, setup/clean-up)? No. CHAIR/[id number] TRANSFER - STEP 2: Does the patient need only setup/clean-up assistance from one helper? No. CHAIR/[id number] TRANSFER - STEP 3: Does the patient need only verbal/nonverbal cueing or touching/steadying/contact guard assistance fro m one helper? Yes. 1. [id number] ADMISSION PERFORMANCE: Supervision or touching assistance CODE: 04 TRANSFER TOILET: TOILET TRANSFER - STEP 1: Does the patient complete the activity by him/herself with no assistance (physical, verbal/nonverbal cueing, setup/clean-up)? No. TOILET TRANSFER - STEP 2: Does the patient need only setup/clean-up assistance from one helper? No. TOILET TRANSFER - STEP 3: Does the patient need only verbal/nonverbal cueing or touching/steadying/contact guard assistance fro m one helper? Yes. 1. [id number] ADMISSION PERFORMANCE: Supervision or touching assistance CODE: 04 TRANSFERS: CAR: Not assessed/no information CODE: - WALK 10 FEET: Not assessed/no information CODE: - 1 STEP (CURB): Not assessed/no information CODE: - PICKING UP OBJECT: Not assessed/no information CODE: - DOES THE PATIENT USE A WHEELCHAIR/SCOOTER? Q1. DOES THE PATIENT USE A WHEELCHAIR/SCOOTER?: Yes CODE: 1 WHEEL 50 FEET WITH TWO TURNS: WHEEL 50 FEET WITH TWO TURNS - STEP 1: Does the patient complete the activity by him/herself with no assistance (physical, verbal/nonverbal cueing, setup/clean-up)? No. WHEEL 50 FEET WITH TWO TURNS - STEP 2: Does the patient need only setup/clean-up assistance from one helper? No. WHEEL 50 FEET WITH TWO TURNS - STEP 3: Does the patient need only verbal/nonverbal cueing or touching/steadying/contact guard assistance fro m one helper? Yes. 1. [id number] ADMISSION PERFORMANCE: Supervision or touching assistance CODE: 04 INDICATE THE TYPE OF WHEELCHAIR/SCOOTER USED: RR1. INDICATE THE TYPE OF WHEELCHAIR/SCOOTER USED.: Manual CODE: 1 WHEEL 150 FEET: Not assessed/no information CODE: - INDICATE THE TYPE OF WHEELCHAIR/SCOOTER USED: SS1. INDICATE THE TYPE OF WHEELCHAIR/SCOOTER USED.: Manual CODE: 1 BLADDER AND BOWEL: H350. BLADDER CONTINENCE (3-DAY ASSESSMENT PERIOD): Always continent (no documented incontinence) CODE: 0 H400. BOWEL CONTINENCE (3-DAY ASSESSMENT PERIOD): Always continent CODE: 0 SIGNATURE PANEL: The following modified sections: 1. [id number] Admission Performance, 1. IJ6277I Admission Performance, 1. [id number] Admission Performance, 1. DK2460I Admission Performance, 1. UY3694z Admission Performance, 1. HR0907p Admission Performance, 1. [id number] Admission Performance, 1. SN8434k Admission Performance , 1. WI8233w Admission Performance, 1. [id number] Admission Performance, 1. [id number] Admission Performanc e, 1. RB5958C Admission Performance, 1. [id number] Admission Performance, 1. ER6486A Admission Performan ce, 1. FO6083U Admission Performance, 1. IN5165V Admission Performance, Q1. Does the patient use a wh eelchair/scooter?, 1. [id number] Admission Performance, RR1. Indicate the type of wheelchair/scooter use d., Code, SS1. Indicate the type of wheelchair/scooter used., H350. Bladder Continence (3-day assessm ent period), H400. Bowel Continence (3-day assessment period) were [electronically] signed by Carri Edmondson C.N.A. on FriJul 26 2019 13:21:28 T-0500 (Central Daylight Time)
--- NOTE | 2019-07-26 14:28 | FAST ---
ENCOUNTER DATE AND TIME: 07/26/2019 08:00 (CDT) NAME ERIC CASTILLO DATE OF : 1940 DATE OF ADMISSION: 07/22/2019 18:14 (CDT) PHONE: AGE: 79 N# [id number] GENDER: Female ENCOUNTER PHYSICIAN: Dr. Pasha Trevino M.D. ADMISSION DIAGNOSIS: - Stroke 01 - Left Body (Right Brain) (01.1) Sub-acute in the right superior temporal gyrus . EATING: Not assessed/no information CODE: - ORAL HYGIENE: ORAL HYGIENE - STEP 1: Does the patient complete the activity by him/herself with no assistance (physical, verbal/nonverbal cueing, setup/clean-up)? No. ORAL HYGIENE - STEP 2: Does the patient need only setup/clean-up assistance from one helper? No. ORAL HYGIENE - STEP 3: Does the patient need only verbal/nonverbal cueing or touching/steadying/contact guard assistance fro m one helper? Yes. 1. [id number] ADMISSION PERFORMANCE: Supervision or touching assistance CODE: 04 TOILETING HYGIENE: Not assessed/no information CODE: - BATHING: SHOWER/BATHE SELF - STEP 1: Does the patient complete the activity by him/herself with no assistance (physical, verbal/nonverbal cueing, setup/clean-up)? No. SHOWER/BATHE SELF - STEP 2: Does the patient need only setup/clean-up assistance from one helper? No. SHOWER/BATHE SELF - STEP 3: Does the patient need only verbal/nonverbal cueing or touching/steadying/contact guard assistance fro m one helper? No. SHOWER/BATHE SELF - STEP 4: Does the patient need physical assistance - for example lifting or trunk support from one helper - wi th the helper providing less than half of the effort? Yes. 1. [id number] ADMISSION PERFORMANCE: Partial/moderate assistance CODE: 03 DRESSING - UPPER BODY: DRESSING - UPPER BODY - STEP 1: Does the patient complete the activity by him/herself with no assistance (physical, verbal/nonverbal cueing, setup/clean-up)? No. DRESSING - UPPER BODY - STEP 2: Does the patient need only setup/clean-up assistance from one helper? No. DRESSING - UPPER BODY - STEP 3: Does the patient need only verbal/nonverbal cueing or touching/steadying/contact guard assistance fro m one helper? No. DRESSING - UPPER BODY - STEP 4: Does the patient need physical assistance - for example lifting or trunk support from one helper - wi th the helper providing less than half of the effort? Yes. 1. ADMISSION PERFORMANCE: Partial/moderate assistance CODE: 03 DRESSING - LOWER BODY: DRESSING - LOWER BODY - STEP 1: Does the patient complete the activity by him/herself with no assistance (physical, verbal/nonverbal cueing, setup/clean-up)? No. DRESSING - LOWER BODY - STEP 2: Does the patient need only setup/clean-up assistance from one helper? No. DRESSING - LOWER BODY - STEP 3: Does the patient need only verbal/nonverbal cueing or touching/steadying/contact guard assistance fro m one helper? No. DRESSING - LOWER BODY - STEP 4: Does the patient need physical assistance - for example lifting or trunk support from one helper - wi th the helper providing less than half of the effort? Yes. 1. ADMISSION PERFORMANCE: Partial/moderate assistance CODE: 03 PUTTING ON/TAKING OFF FOOTWEAR: FOOTWEAR - STEP 1: Does the patient complete the activity by him/herself with no assistance (physical, verbal/nonverbal cueing, setup/clean-up)? No. FOOTWEAR - STEP 2: Does the patient need only setup/clean-up assistance from one helper? No. FOOTWEAR - STEP 3: Does the patient need only verbal/nonverbal cueing or touching/steadying/contact guard assistance fro m one helper? No. FOOTWEAR - STEP 4: Does the patient need physical assistance - for example lifting or trunk support from one helper - wi th the helper providing less than half of the effort? Yes. 1. ADMISSION PERFORMANCE: Partial/moderate assistance CODE: 03 DOES THE PATIENT USE A WHEELCHAIR/SCOOTER? CODE: EXPR INDICATE THE TYPE OF WHEELCHAIR/SCOOTER USED: CODE: EXPR INDICATE THE TYPE OF WHEELCHAIR/SCOOTER USED: CODE: EXPR BLADDER AND BOWEL: CODE: EXPR CODE: EXPR SIGNATURE PANEL: The following modified sections: 1. [id number] Admission Performance, 1. [id number] Admission Performance, 1. LF8701k Admission Performance, 1. ET7200n Admission Performance, 1. VI1146b Admission Performance, 1. MF0024k Admission Performance, 1. FY9067h Admission Performance were [electronically] signed by SASHA Andrews on FriJul 26 2019 14:27:41 GMT-0500 (Central Daylight Time)
--- NOTE | 2019-07-26 18:29 | R.PN ---
ENCOUNTER DATE AND TIME: 07/26/2019 18:03 (CDT) NAME ERIC CASTILLO DATE OF : 1940 DATE OF ADMISSION: 07/22/2019 18:14 (CDT) Sub-acute in the right superior temporal gyrus CHIEF COMPLAINT: Stroke in right temporal gyrus. SUBJECTIVE: Pt denied any depression. Pt denied any Shortness of Breath. Labs reviewed and are stable. She is making good progress with physical and occupational therapy. VITAL SIGNS Temperature: 97.4 F SBP/DBP: 142/79 Pulse: 78 Resp: 16 MEDICATION ALLERGIES: No Known Drug Allergies (NKDA) ENVIRONMENTAL ALLERGIES: - Substance Allergies None Known - Other Allergies None Known NURSING: - Shower allowing shower - Bladder care per protocol - Skin care per protocol PRECAUTIONS: - Weight Bearing Precaution WBAT left LE ACTIVITIES OOB only with supervision THERAPIES: - Occupational Therapy Cognitive Retraining. Visual Perceptual Training. - Dietary and Nutrition Adequate Nutrition. Nutritional Education. Nutritional Supplements. - Speech Therapy Cognitive Training. Expressive Language Skills. Memory Strategies. Receptive Language Skills. Speech Intelligibility Training. PHYSICAL EXAM - Gen Alert and awake Lying in bed No apparent distress Oriented to: person, time, and place - Skin No breakdown No abnormalities - Eyes No abnormalities - ENMT No abnormalities - Neck No abnormalities - CVS RRR - Chest No abnormalities - Abd Soft - GI + bowel sounds Deferred - No abnormalities - Ext No significant edema. - MSK 4+/5 weakness in left upper and lower extremity - Neuro 4/5 strength left upper and lower extremities. - Psych No abnormalities ASSESSMENT: Pt. is a 79 yo Right-handed white female.On 07/18/2019 Pt. 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 was independent/mod-I in Self-Care, Sphincter Control, Transfers Control, Locomotion, Communication, and Social Cognition; and she had good Sphincter Control.Currently, she alvarez s deficits of Self-Care, Locomotion, Communication, Social Cognition, Endurance, Balance, Safety Awar eness, and Transfers Control.Pt. is now referred to [facility] for acute in-sher tient rehabilitation in order to maximize patient's functional independence in activities of daily li ving, strength, ROM, and mobility.- Rehab Goal Patient has realistic goal of being discharged at assistance level 6-Gian to reside at Home with Fam yonis/Relatives. MDM/PLAN: - Physical Therapy Gait dysfunction - to improve, our physical therapists will perform initial evaluation of pt's statu s upon admission and devise an individualized program for Gait Training, and Wheel Chair mobility Inability to transfer - to improve, our physical therapists will perform initial evaluation of pt's status upon admission and devise an individualized program for Bed mobility Need for home safety evaluation - to improve, our physical therapists will perform initial evaluatio n of pt's status upon admission and devise an individualized program for Home Evaluation Need in caregiver upon discharge - to improve, our physical therapists will perform initial evaluati on of pt's status upon admission and devise an individualized program for Caregiver Training Edema - to improve, our physical therapists will perform initial evaluation of pt's status upon admis soo and devise an individualized program for Elevation Training, and Lymphedema Therapy New precaution - to improve, our physical therapists will perform initial evaluation of pt's status upon admission and devise an individualized program for Patient precaution education Poor balance - to improve, our physical therapists will perform initial evaluation of pt's status up on admission and devise an individualized program for Balance Training Poor endurance - to improve, our physical therapists will perform initial evaluation of pt's status upon admission and devise an individualized program for Endurance Training Weakness - to improve, our physical therapists will perform initial evaluation of pt's status upon a dmission and devise an individualized program for Aquatic Therapy, Neuromuscular Reeducation, and Str engthening Achieving independence - to improve, our physical therapists will perform initial evaluation of pt's status upon admission and devise an individualized program for Community Reintegration Activities - Occupational Therapy ADL deficits - to improve, our occupation therapists will perform initial evaluation of pt's status upon admission and devise an individualized program for Bathing, Bed mobility, Community Reintegratio n, Cooking, Dressing, Eating, Fine Motor Skills, Grooming, Homemaking, Kitchen Mobility, Laundry, Pat ient Education, Safety Awareness, Splinting - Positioning, Transfers(Toilet, Tub, Shower), and Wheel Chair Management Cognitive deficits - to improve, our occupation therapists will perform initial evaluation of pt's s tatus upon admission and devise an individualized program for Cognition - orientation Need for director of medicare - to improve, our occupation therapists will perform initial evaluation of pt's status upon admission and devise an individualized program for Caregiver Training Weakness - to improve, our occupation therapists will perform initial evaluation of pt's status upon admission and devise an individualized program for Aquatic Therapy, Balance, Endurance, UE ROM, and UE strengthening - Other See attached MAR (Medication Administration Record) - Diet Type Continue Regular - Diet - Liquid Texture Continue Regular - Tube Feed Continue N/A - Bladder care per protocol - Weight Bearing Precaution WBAT left LE - Skin care per protocol - Diet - Solid Texture Continue Regular - Shower allowing shower for Dementia, TBI, Stroke, or others FUNCTIONAL STATUS: UPDATED AT WEEKLY TEAM CONFERENCE - Bladder Same Bladder control device used: diaper Same accident frequency: 7-Ind - No accidents in the past 7 days - Bowel Same accident frequency: 7-Ind - No accidents in the past 7 days - Walking Same score based on distance walked: 1(<=50ft) - Wheelchair Same score based on distance traveled: 1(<=50ft) FUNCTIONAL STATUS: - Self-Care A. Eating sup B. Grooming sup C. Bathing maxA D. Dressing - Upper modA E. Dressing - Lower maxA F. Toileting Dep - Sphincter Control G: Bladder control Dep H: Bowel control Dep - Transfers Control I. Bed/Chair/Wheelchair Ind J. Toilet Brady K. Tub/Shower Brady - Locomotion L. Walk/Wheelchair (C) Dep L. Walk/Wheelchair (W) Dep M. Stairs ADNO - Communication N. Comprehension (B) Brady O. Expression (B) Brady - Social Cognition P. Social Interaction Brady Q. Problem Solving modA R. Memory modA - Endurance Poor - Balance Poor - Safety Awareness Poor QI SCORES: - Self-Care A. Eating 05-Setup or clean-up assistance B. Oral hygiene 05-Setup or clean-up assistance C. Toileting hygiene 02-Substantial/maximal assistance E. Shower/bathe self 02-Substantial/maximal assistance F. Upper body dressing 03-Partial/moderate assistance G. Lower body dressing 02-Substantial/maximal assistance H. Putting on/taking off footwear 01-Dependent - Mobility A. Roll left and right 04-Supervision or touching assistance B. Sit to lying 04-Supervision or touching assistance C. Lying to sitting on side of bed 04-Supervision or touching assistance D. Sit to stand 04-Supervision or touching assistance E. Chair/ymi-ey-[id number] transfer 04-Supervision or touching assistance F. Toilet transfer 03-Partial/moderate assistance G. Car transfer 88-Not attempted due to medical condition or safety concerns I. Walk 10 feet 04-Supervision or touching assistance J. Walk 50 feet with two turns 88-Not attempted due to medical condition or safety concerns K. Walk 150 feet 88-Not attempted due to medical condition or safety concerns L. Walking 10 feet on uneven surfaces 88-Not attempted due to medical condition or safety concerns M. 1 step (curb) 88-Not attempted due to medical condition or safety concerns N. 4 steps 88-Not attempted due to medical condition or safety concerns O. 12 steps 88-Not attempted due to medical condition or safety concerns P. Picking up object 88-Not attempted due to medical condition or safety concerns R. Wheel 50 feet with two turns 88-Not attempted due to medical condition or safety concerns S. Wheel 150 feet 88-Not attempted due to medical condition or safety concerns - Bladder and Bowel Bladder continence 4-Always incontinent Bowel continence 3-Always incontinent CURRENT FUNC. DEFICITS: Self-Care, Locomotion, Communication, Social Cognition, Endurance, Balance, Safety Awareness, and Tra nsfers Control SIGNATURE PANEL: (CDT)
[2019-07-26] MEDS: ALPRAZOLAM 1 MG TABLET PO PRN (20:17)
[2019-07-26] MEDS: MIRTAZAPINE 15 MG TAB PO SCH (20:17)
[2019-07-26] MEDS: ATORVASTATIN 20 MG TAB PO SCH (20:17)
[2019-07-27] MEDS: LEVOTHYROXINE SOD 0.1 MG TAB PO SCH (05:34)
[2019-07-27] MEDS: METOPROLOL TAR 25 MG TAB PO SCH ×2 (05:34→17:09)
[2019-07-27] MEDS: CEPHALEXIN 250 MG CAP PO SCH ×2 (08:00→18:50)
[2019-07-27] MEDS: ASPIRIN 81 MG CHEWABLE TABLET PO SCH (08:01)
[2019-07-27] MEDS: APIXABAN 5 MG TABLET PO SCH ×2 (08:01→18:49)
[2019-07-27] MEDS: FAMOTIDINE 20 MG TAB PO SCH ×2 (08:01→18:49)
[2019-07-27] MEDS: GABAPENTIN 100 MG CAP PO SCH ×3 (08:01→18:50)
[2019-07-27] MEDS: MIRTAZAPINE 15 MG TAB PO SCH (18:49)
[2019-07-27] MEDS: MELATONIN 3 MG TABLET PO PRN (18:49)
[2019-07-27] MEDS: ATORVASTATIN 20 MG TAB PO SCH (18:50)
[2019-07-28] MEDS: METOPROLOL TAR 25 MG TAB PO SCH ×2 (05:07→17:11)
[2019-07-28] MEDS: LEVOTHYROXINE SOD 0.1 MG TAB PO SCH (07:26)
[2019-07-28] MEDS: CEPHALEXIN 250 MG CAP PO SCH ×2 (08:02→18:33)
[2019-07-28] MEDS: FAMOTIDINE 20 MG TAB PO SCH ×2 (08:03→18:33)
[2019-07-28] MEDS: ASPIRIN 81 MG CHEWABLE TABLET PO SCH (08:03)
[2019-07-28] MEDS: APIXABAN 5 MG TABLET PO SCH ×2 (08:03→18:33)
[2019-07-28] MEDS: GABAPENTIN 100 MG CAP PO SCH ×3 (08:06→18:33)
--- NOTE | 2019-07-28 13:00 | FAST ---
SHIFT START DATE/TIME: 07/28/2019 07:00 (CDT) SHIFT END DATE/TIME: 07/28/2019 19:00 (CDT) NAME ERIC CASTILLO DATE OF : 1940 DATE OF ADMISSION: 07/22/2019 18:14 (CDT) PHONE: AGE: 79 N# [id number] GENDER: Female ENCOUNTER PHYSICIAN: Dr. Pasha Trevino M.D. ADMISSION DIAGNOSIS: - Stroke 01 - Left Body (Right Brain) (01.1) Sub-acute in the right superior temporal gyrus . EATING: EATING - STEP 1: Does the patient complete the activity by him/herself with no assistance (physical, verbal/nonverbal cueing, setup/clean-up)? No. EATING - STEP 2: Does the patient need only setup/clean-up assistance from one helper? No. EATING - STEP 3: Does the patient need only verbal/nonverbal cueing or touching/steadying/contact guard assistance fro m one helper? Yes. 1. [id number] ADMISSION PERFORMANCE: Supervision or touching assistance CODE: 04 ORAL HYGIENE: ORAL HYGIENE - STEP 1: Does the patient complete the activity by him/herself with no assistance (physical, verbal/nonverbal cueing, setup/clean-up)? No. ORAL HYGIENE - STEP 2: Does the patient need only setup/clean-up assistance from one helper? Yes. 1. [id number] ADMISSION PERFORMANCE: Setup or clean-up assistance CODE: 05 TOILETING HYGIENE: TOILETING HYGIENE - STEP 1: Does the patient complete the activity by him/herself with no assistance (physical, verbal/nonverbal cueing, setup/clean-up)? No. TOILETING HYGIENE - STEP 2: Does the patient need only setup/clean-up assistance from one helper? Yes. 1. [id number] ADMISSION PERFORMANCE: Setup or clean-up assistance CODE: 05 BATHING: Not assessed/no information CODE: - DRESSING - UPPER BODY: Not assessed/no information CODE: - DRESSING - LOWER BODY: Not assessed/no information CODE: - PUTTING ON/TAKING OFF FOOTWEAR: Not assessed/no information CODE: - ROLL LEFT AND RIGHT: ROLL LEFT AND RIGHT - STEP 1: Does the patient complete the activity by him/herself with no assistance (physical, verbal/nonverbal cueing, setup/clean-up)? No. ROLL LEFT AND RIGHT - STEP 2: Does the patient need only setup/clean-up assistance from one helper? No. ROLL LEFT AND RIGHT - STEP 3: Does the patient need only verbal/nonverbal cueing or touching/steadying/contact guard assistance fro m one helper? Yes. 1. [id number] ADMISSION PERFORMANCE: Supervision or touching assistance CODE: 04 SIT TO LYING: SIT TO LYING - STEP 1: Does the patient complete the activity by him/herself with no assistance (physical, verbal/nonverbal cueing, setup/clean-up)? No. SIT TO LYING - STEP 2: Does the patient need only setup/clean-up assistance from one helper? No. SIT TO LYING - STEP 3: Does the patient need only verbal/nonverbal cueing or touching/steadying/contact guard assistance fro m one helper? Yes. 1. [id number] ADMISSION PERFORMANCE: Supervision or touching assistance CODE: 04 LYING TO SITTING: LYING TO SITTING ON SIDE OF BED - STEP 1: Does the patient complete the activity by him/herself with no assistance (physical, verbal/nonverbal cueing, setup/clean-up)? No. LYING TO SITTING ON SIDE OF BED - STEP 2: Does the patient need only setup/clean-up assistance from one helper? No. LYING TO SITTING ON SIDE OF BED - STEP 3: Does the patient need only verbal/nonverbal cueing or touching/steadying/contact guard assistance fro m one helper? Yes. 1. [id number] ADMISSION PERFORMANCE: Supervision or touching assistance CODE: 04 SIT TO STAND: SIT TO STAND - STEP 1: Does the patient complete the activity by him/herself with no assistance (physical, verbal/nonverbal cueing, setup/clean-up)? No. SIT TO STAND - STEP 2: Does the patient need only setup/clean-up assistance from one helper? No. SIT TO STAND - STEP 3: Does the patient need only verbal/nonverbal cueing or touching/steadying/contact guard assistance fro m one helper? Yes. 1. [id number] ADMISSION PERFORMANCE: Supervision or touching assistance CODE: 04 TRANSFERS: BED, CHAIR: CHAIR/[id number] TRANSFER - STEP 1: Does the patient complete the activity by him/herself with no assistance (physical, verbal/nonverbal cueing, setup/clean-up)? No. CHAIR/[id number] TRANSFER - STEP 2: Does the patient need only setup/clean-up assistance from one helper? No. CHAIR/[id number] TRANSFER - STEP 3: Does the patient need only verbal/nonverbal cueing or touching/steadying/contact guard assistance fro m one helper? Yes. 1. [id number] ADMISSION PERFORMANCE: Supervision or touching assistance CODE: 04 TRANSFER TOILET: TOILET TRANSFER - STEP 1: Does the patient complete the activity by him/herself with no assistance (physical, verbal/nonverbal cueing, setup/clean-up)? No. TOILET TRANSFER - STEP 2: Does the patient need only setup/clean-up assistance from one helper? No. TOILET TRANSFER - STEP 3: Does the patient need only verbal/nonverbal cueing or touching/steadying/contact guard assistance fro m one helper? Yes. 1. [id number] ADMISSION PERFORMANCE: Supervision or touching assistance CODE: 04 TRANSFERS: CAR: Not assessed/no information CODE: - WALK 10 FEET: Not assessed/no information CODE: - 1 STEP (CURB): Not assessed/no information CODE: - PICKING UP OBJECT: Not assessed/no information CODE: - DOES THE PATIENT USE A WHEELCHAIR/SCOOTER? CODE: EXPR WHEEL 50 FEET WITH TWO TURNS: Not assessed/no information CODE: - INDICATE THE TYPE OF WHEELCHAIR/SCOOTER USED: CODE: EXPR WHEEL 150 FEET: Not assessed/no information CODE: - INDICATE THE TYPE OF WHEELCHAIR/SCOOTER USED: CODE: EXPR BLADDER AND BOWEL: H350. BLADDER CONTINENCE (3-DAY ASSESSMENT PERIOD): Always continent (no documented incontinence) CODE: 0 H400. BOWEL CONTINENCE (3-DAY ASSESSMENT PERIOD): Always continent CODE: 0 SIGNATURE PANEL: The following modified sections: 1. [id number] Admission Performance, 1. [id number] Admission Performance, 1. [id number] Admission Performance, 1. [id number] Admission Performance, 1. [id number] Admission Performance, 1. [id number] Admission Performance, 1. [id number] Admission Performance, 1. [id number] Admission Performance , 1. [id number] Admission Performance, 1. [id number] Admission Performance, 1. [id number] Admission Performanc e, Code, H350. Bladder Continence (3-day assessment period), H400. Bowel Continence (3-day assessment period) were [electronically] signed by Dmitri Canales on FriJul 28 2019 13:00:19 GMT-0500 (Central Day light Time)
--- NOTE | 2019-07-28 13:09 | FAST ---
ENCOUNTER DATE AND TIME: 07/28/2019 08:00 (CDT) NAME ERIC CASTILLO DATE OF : 1940 DATE OF ADMISSION: 07/22/2019 18:14 (CDT) PHONE: AGE: 79 N# [id number] GENDER: Female ENCOUNTER PHYSICIAN: Dr. Pasha Trevino M.D. ADMISSION DIAGNOSIS: - Stroke 01 - Left Body (Right Brain) (01.1) Sub-acute in the right superior temporal gyrus . EATING: Not assessed/no information CODE: - ORAL HYGIENE: Not assessed/no information CODE: - TOILETING HYGIENE: Not assessed/no information CODE: - BATHING: SHOWER/BATHE SELF - STEP 1: Does the patient complete the activity by him/herself with no assistance (physical, verbal/nonverbal cueing, setup/clean-up)? No. SHOWER/BATHE SELF - STEP 2: Does the patient need only setup/clean-up assistance from one helper? No. SHOWER/BATHE SELF - STEP 3: Does the patient need only verbal/nonverbal cueing or touching/steadying/contact guard assistance fro m one helper? Yes. 1. [id number] ADMISSION PERFORMANCE: Supervision or touching assistance CODE: 04 DRESSING - UPPER BODY: DRESSING - UPPER BODY - STEP 1: Does the patient complete the activity by him/herself with no assistance (physical, verbal/nonverbal cueing, setup/clean-up)? No. DRESSING - UPPER BODY - STEP 2: Does the patient need only setup/clean-up assistance from one helper? No. DRESSING - UPPER BODY - STEP 3: Does the patient need only verbal/nonverbal cueing or touching/steadying/contact guard assistance fro m one helper? Yes. 1. [id number] ADMISSION PERFORMANCE: Supervision or touching assistance CODE: 04 DRESSING - LOWER BODY: DRESSING - LOWER BODY - STEP 1: Does the patient complete the activity by him/herself with no assistance (physical, verbal/nonverbal cueing, setup/clean-up)? No. DRESSING - LOWER BODY - STEP 2: Does the patient need only setup/clean-up assistance from one helper? No. DRESSING - LOWER BODY - STEP 3: Does the patient need only verbal/nonverbal cueing or touching/steadying/contact guard assistance fro m one helper? Yes. 1. [id number] ADMISSION PERFORMANCE: Supervision or touching assistance CODE: 04 PUTTING ON/TAKING OFF FOOTWEAR: FOOTWEAR - STEP 1: Does the patient complete the activity by him/herself with no assistance (physical, verbal/nonverbal cueing, setup/clean-up)? No. FOOTWEAR - STEP 2: Does the patient need only setup/clean-up assistance from one helper? Yes. 1. [id number] ADMISSION PERFORMANCE: Setup or clean-up assistance CODE: 05 DOES THE PATIENT USE A WHEELCHAIR/SCOOTER? CODE: EXPR INDICATE THE TYPE OF WHEELCHAIR/SCOOTER USED: CODE: EXPR INDICATE THE TYPE OF WHEELCHAIR/SCOOTER USED: CODE: EXPR BLADDER AND BOWEL: CODE: EXPR CODE: EXPR SIGNATURE PANEL: The following modified sections: 1. [id number] Admission Performance, 1. [id number] Admission Performance, 1. [id number] Admission Performance, 1. [id number] Admission Performance were [electronically] signed by Nikki Galindo OT on FriJul 28 2019 13:08:10 T-0500 (Central Daylight Time)
[2019-07-28] MEDS: ATORVASTATIN 20 MG TAB PO SCH (18:32)
[2019-07-28] MEDS: MIRTAZAPINE 15 MG TAB PO SCH (18:32)
[2019-07-28] MEDS: MELATONIN 3 MG TABLET PO PRN (18:33)
--- NOTE | 2019-07-28 19:14 | R.PN ---
ENCOUNTER DATE AND TIME: 07/28/2019 19:12 (CDT) NAME ERIC CASTILLO DATE OF : 1940 DATE OF ADMISSION: 07/22/2019 18:14 (CDT) Sub-acute in the right superior temporal gyrus CHIEF COMPLAINT: Stroke in right temporal gyrus. SUBJECTIVE: Pt denied any depression. Pt denied any Shortness of Breath. Labs reviewed and are stable. She is making good progress with physical and occupational therapy. VITAL SIGNS Temperature: 98.2 F SBP/DBP: 137/83 Pulse: 78 Resp: 16 MEDICATION ALLERGIES: No Known Drug Allergies (NKDA) ENVIRONMENTAL ALLERGIES: - Substance Allergies None Known - Other Allergies None Known NURSING: - Shower allowing shower - Bladder care per protocol - Skin care per protocol PRECAUTIONS: - Weight Bearing Precaution WBAT left LE ACTIVITIES OOB only with supervision THERAPIES: - Occupational Therapy Cognitive Retraining. Visual Perceptual Training. - Dietary and Nutrition Adequate Nutrition. Nutritional Education. Nutritional Supplements. - Speech Therapy Cognitive Training. Expressive Language Skills. Memory Strategies. Receptive Language Skills. Speech Intelligibility Training. PHYSICAL EXAM - Gen Alert and awake Lying in bed No apparent distress Oriented to: person, time, and place - Skin No breakdown No abnormalities - Eyes No abnormalities - ENMT No abnormalities - Neck No abnormalities - CVS RRR - Chest No abnormalities - Abd Soft - GI + bowel sounds Deferred - No abnormalities - Ext No significant edema. - MSK 4+/5 weakness in left upper and lower extremity - Neuro 4/5 strength left upper and lower extremities. - Psych No abnormalities ASSESSMENT: Pt. is a 79 yo Right-handed white female.On 07/18/2019 Pt. presented to [facility] with sudden o nset of left-side weakness.On 07/18/2019 she was admitted to [facility] with diagnosis Sub-acute in the right superior temporal gyrus .Her impairment category is Stroke 01 - Left Body (Right Brain ) (01.1).Pre-morbidly, Pt. was independent/mod-I in Self-Care, Sphincter Control, Transfers Control, Locomotion, Communication, and Social Cognition; and she had good Sphincter Control.Currently, she alvarez s deficits of Self-Care, Locomotion, Communication, Social Cognition, Endurance, Balance, Safety Awar eness, and Transfers Control.Pt. is now referred to [facility] for acute in-sher tient rehabilitation in order to maximize patient's functional independence in activities of daily li ving, strength, ROM, and mobility.- Rehab Goal Patient has realistic goal of being discharged at assistance level 6-Gian to reside at Home with Fam yonis/Relatives. MDM/PLAN: - Physical Therapy Gait dysfunction - to improve, our physical therapists will perform initial evaluation of pt's statu s upon admission and devise an individualized program for Gait Training, and Wheel Chair mobility Inability to transfer - to improve, our physical therapists will perform initial evaluation of pt's status upon admission and devise an individualized program for Bed mobility Need for home safety evaluation - to improve, our physical therapists will perform initial evaluatio n of pt's status upon admission and devise an individualized program for Home Evaluation Need in caregiver upon discharge - to improve, our physical therapists will perform initial evaluati on of pt's status upon admission and devise an individualized program for Caregiver Training Edema - to improve, our physical therapists will perform initial evaluation of pt's status upon admi ssion and devise an individualized program for Elevation Training, and Lymphedema Therapy New precaution - to improve, our physical therapists will perform initial evaluation of pt's status upon admission and devise an individualized program for Patient precaution education Poor balance - to improve, our physical therapists will perform initial evaluation of pt's status up on admission and devise an individualized program for Balance Training Poor endurance - to improve, our physical therapists will perform initial evaluation of pt's status upon admission and devise an individualized program for Endurance Training Weakness - to improve, our physical therapists will perform initial evaluation of pt's status upon a dmission and devise an individualized program for Aquatic Therapy, Neuromuscular Reeducation, and Str engthening Achieving independence - to improve, our physical therapists will perform initial evaluation of pt's status upon admission and devise an individualized program for Community Reintegration Activities - Occupational Therapy ADL deficits - to improve, our occupation therapists will perform initial evaluation of pt's status upon admission and devise an individualized program for Bathing, Bed mobility, Community Reintegratio n, Cooking, Dressing, Eating, Fine Motor Skills, Grooming, Homemaking, Kitchen Mobility, Laundry, Pat ient Education, Safety Awareness, Splinting - Positioning, Transfers(Toilet, Tub, Shower), and Wheel Chair Management Cognitive deficits - to improve, our occupation therapists will perform initial evaluation of pt's s tatus upon admission and devise an individualized program for Cognition - orientation Need for student career development specialist - to improve, our occupation therapists will perform initial evaluation of pt's status upon admission and devise an individualized program for Caregiver Training Weakness - to improve, our occupation therapists will perform initial evaluation of pt's status upon admission and devise an individualized program for Aquatic Therapy, Balance, Endurance, UE ROM, and UE strengthening - Other See attached MAR (Medication Administration Record) - Diet Type Continue Regular - Diet - Liquid Texture Continue Regular - Tube Feed Continue N/A - Bladder care per protocol - Weight Bearing Precaution WBAT left LE - Skin care per protocol - Diet - Solid Texture Continue Regular - Shower allowing shower for Dementia, TBI, Stroke, or others FUNCTIONAL STATUS: UPDATED AT WEEKLY TEAM CONFERENCE - Bladder Same Bladder control device used: diaper Same accident frequency: 7-Ind - No accidents in the past 7 days - Bowel Same accident frequency: 7-Ind - No accidents in the past 7 days - Walking Same score based on distance walked: 1(<=50ft) - Wheelchair Same score based on distance traveled: 1(<=50ft) FUNCTIONAL STATUS: - Self-Care A. Eating sup B. Grooming sup C. Bathing maxA D. Dressing - Upper modA E. Dressing - Lower maxA F. Toileting Dep - Sphincter Control G: Bladder control Dep H: Bowel control Dep - Transfers Control I. Bed/Chair/Wheelchair Ind J. Toilet Brady K. Tub/Shower Brady - Locomotion L. Walk/Wheelchair (C) Dep L. Walk/Wheelchair (W) Dep M. Stairs ADNO - Communication N. Comprehension (B) Brady O. Expression (B) Brady - Social Cognition P. Social Interaction Brady Q. Problem Solving modA R. Memory modA - Endurance Poor - Balance Poor - Safety Awareness Poor QI SCORES: - Self-Care A. Eating 05-Setup or clean-up assistance B. Oral hygiene 05-Setup or clean-up assistance C. Toileting hygiene 02-Substantial/maximal assistance E. Shower/bathe self 02-Substantial/maximal assistance F. Upper body dressing 03-Partial/moderate assistance G. Lower body dressing 02-Substantial/maximal assistance H. Putting on/taking off footwear 01-Dependent - Mobility A. Roll left and right 04-Supervision or touching assistance B. Sit to lying 04-Supervision or touching assistance C. Lying to sitting on side of bed 04-Supervision or touching assistance D. Sit to stand 04-Supervision or touching assistance E. Chair/cgd-np-rsnad transfer 04-Supervision or touching assistance F. Toilet transfer 03-Partial/moderate assistance G. Car transfer 88-Not attempted due to medical condition or safety concerns I. Walk 10 feet 04-Supervision or touching assistance J. Walk 50 feet with two turns 88-Not attempted due to medical condition or safety concerns K. Walk 150 feet 88-Not attempted due to medical condition or safety concerns L. Walking 10 feet on uneven surfaces 88-Not attempted due to medical condition or safety concerns M. 1 step (curb) 88-Not attempted due to medical condition or safety concerns N. 4 steps 88-Not attempted due to medical condition or safety concerns O. 12 steps 88-Not attempted due to medical condition or safety concerns P. Picking up object 88-Not attempted due to medical condition or safety concerns R. Wheel 50 feet with two turns 88-Not attempted due to medical condition or safety concerns S. Wheel 150 feet 88-Not attempted due to medical condition or safety concerns - Bladder and Bowel Bladder continence 4-Always incontinent Bowel continence 3-Always incontinent CURRENT FUNC. DEFICITS: Self-Care, Locomotion, Communication, Social Cognition, Endurance, Balance, Safety Awareness, and Tra nsfers Control SIGNATURE PANEL: (CDT)
[2019-07-29] MEDS: METOPROLOL TAR 25 MG TAB PO SCH ×2 (05:04→17:07)
[2019-07-29 05:55] LABS: Absolute Lymphocytes (CBC) 2.3 K/uL (0.7-4.9); Basophils % 1.2 % (0-1.3); Hematocrit 35.3 % (36.0-45.0); Lymphocytes % 32.5 % (15.3-44.8); MPV 7.1 fL (7.6-11.3); RBC Red Blood Cell Count 4.14 M/uL (3.86-4.86)
[2019-07-29 06:15] LABS: Albumin 3.3 g/dL (3.4-5.0); Potassium 4.2 mmol/L (3.5-5.1); Prealbumin 22.4 mg/dL (20-40)
[2019-07-29] MEDS: LEVOTHYROXINE SOD 0.1 MG TAB PO SCH (06:39)
[2019-07-29] MEDS: ASPIRIN 81 MG CHEWABLE TABLET PO SCH (08:33)
[2019-07-29] MEDS: FAMOTIDINE 20 MG TAB PO SCH ×2 (08:33→20:21)
[2019-07-29] MEDS: CEPHALEXIN 250 MG CAP PO SCH (08:33)
[2019-07-29] MEDS: APIXABAN 5 MG TABLET PO SCH ×2 (08:34→20:21)
[2019-07-29] MEDS: GABAPENTIN 100 MG CAP PO SCH ×3 (08:35→20:21)
--- NOTE | 2019-07-29 15:48 | FAST ---
ENCOUNTER DATE AND TIME: 07/29/2019 08:00 (CDT) NAME ERIC CASTILLO DATE OF : 1940 DATE OF ADMISSION: 07/22/2019 18:14 (CDT) PHONE: AGE: 79 N# [id number] GENDER: Female ENCOUNTER PHYSICIAN: Dr. Pasha Trevino M.D. ADMISSION DIAGNOSIS: - Stroke 01 - Left Body (Right Brain) (01.1) Sub-acute in the right superior temporal gyrus . ROLL LEFT AND RIGHT: ROLL LEFT AND RIGHT - STEP 1: Does the patient complete the activity by him/herself with no assistance (physical, verbal/nonverbal cueing, setup/clean-up)? Yes. 1. [id number] ADMISSION PERFORMANCE: Independent CODE: 06 SIT TO LYING: SIT TO LYING - STEP 1: Does the patient complete the activity by him/herself with no assistance (physical, verbal/nonverbal cueing, setup/clean-up)? No. SIT TO LYING - STEP 2: Does the patient need only setup/clean-up assistance from one helper? No. SIT TO LYING - STEP 3: Does the patient need only verbal/nonverbal cueing or touching/steadying/contact guard assistance fro m one helper? Yes. 1. [id number] ADMISSION PERFORMANCE: Supervision or touching assistance CODE: 04 LYING TO SITTING: LYING TO SITTING ON SIDE OF BED - STEP 1: Does the patient complete the activity by him/herself with no assistance (physical, verbal/nonverbal cueing, setup/clean-up)? No. LYING TO SITTING ON SIDE OF BED - STEP 2: Does the patient need only setup/clean-up assistance from one helper? No. LYING TO SITTING ON SIDE OF BED - STEP 3: Does the patient need only verbal/nonverbal cueing or touching/steadying/contact guard assistance fro m one helper? Yes. 1. [id number] ADMISSION PERFORMANCE: Supervision or touching assistance CODE: 04 SIT TO STAND: SIT TO STAND - STEP 1: Does the patient complete the activity by him/herself with no assistance (physical, verbal/nonverbal cueing, setup/clean-up)? No. SIT TO STAND - STEP 2: Does the patient need only setup/clean-up assistance from one helper? No. SIT TO STAND - STEP 3: Does the patient need only verbal/nonverbal cueing or touching/steadying/contact guard assistance fro m one helper? Yes. 1. [id number] ADMISSION PERFORMANCE: Supervision or touching assistance CODE: 04 TRANSFERS: BED, CHAIR: CHAIR/[id number] TRANSFER - STEP 1: Does the patient complete the activity by him/herself with no assistance (physical, verbal/nonverbal cueing, setup/clean-up)? No. CHAIR/[id number] TRANSFER - STEP 2: Does the patient need only setup/clean-up assistance from one helper? No. CHAIR/[id number] TRANSFER - STEP 3: Does the patient need only verbal/nonverbal cueing or touching/steadying/contact guard assistance fro m one helper? Yes. 1. [id number] ADMISSION PERFORMANCE: Supervision or touching assistance CODE: 04 TRANSFER TOILET: TOILET TRANSFER - STEP 1: Does the patient complete the activity by him/herself with no assistance (physical, verbal/nonverbal cueing, setup/clean-up)? No. TOILET TRANSFER - STEP 2: Does the patient need only setup/clean-up assistance from one helper? No. TOILET TRANSFER - STEP 3: Does the patient need only verbal/nonverbal cueing or touching/steadying/contact guard assistance fro m one helper? Yes. 1. [id number] ADMISSION PERFORMANCE: Supervision or touching assistance CODE: 04 TRANSFERS: CAR: Not attempted due to environmental limitations (e.g., lack of equipment, weather constraints) CODE: 10 WALK 10 FEET: WALK 10 FEET - STEP 1: Does the patient complete the activity by him/herself with no assistance (physical, verbal/nonverbal cueing, setup/clean-up)? No. WALK 10 FEET - STEP 2: Does the patient need only setup/clean-up assistance from one helper? No. WALK 10 FEET - STEP 3: Does the patient need only verbal/nonverbal cueing or touching/steadying/contact guard assistance fro m one helper? Yes. 1. [id number] ADMISSION PERFORMANCE: Supervision or touching assistance CODE: WALK 50 FEET: WALK 50 FEET - STEP 1: Does the patient complete the activity by him/herself with no assistance (physical, verbal/nonverbal cueing, setup/clean-up)? No. WALK 50 FEET - STEP 2: Does the patient need only setup/clean-up assistance from one helper? No. WALK 50 FEET - STEP 3: Does the patient need only verbal/nonverbal cueing or touching/steadying/contact guard assistance fro m one helper? Yes. 1. [id number] ADMISSION PERFORMANCE: Supervision or touching assistance CODE: WALK 150 FEET: WALK 150 FEET - STEP 1: Does the patient complete the activity by him/herself with no assistance (physical, verbal/nonverbal cueing, setup/clean-up)? No. WALK 150 FEET - STEP 2: Does the patient need only setup/clean-up assistance from one helper? No. WALK 150 FEET - STEP 3: Does the patient need only verbal/nonverbal cueing or touching/steadying/contact guard assistance fro m one helper? Yes. 1. [id number] ADMISSION PERFORMANCE: Supervision or touching assistance CODE: WALK 10 FEET UNEVEN: WALKING 10 FEET ON UNEVEN SURFACES - STEP 1: Does the patient complete the activity by him/herself with no assistance (physical, verbal/nonverbal cueing, setup/clean-up)? No. WALKING 10 FEET ON UNEVEN SURFACES - STEP 2: Does the patient need only setup/clean-up assistance from one helper? No. WALKING 10 FEET ON UNEVEN SURFACES - STEP 3: Does the patient need only verbal/nonverbal cueing or touching/steadying/contact guard assistance fro m one helper? Yes. 1. [id number] ADMISSION PERFORMANCE: Supervision or touching assistance CODE: 04 1 STEP (CURB): 1 STEP CURB - STEP 1: Does the patient complete the activity by him/herself with no assistance (physical, verbal/nonverbal cueing, setup/clean-up)? No. 1 STEP CURB - STEP 2: Does the patient need only setup/clean-up assistance from one helper? No. 1 STEP CURB - STEP 3: Does the patient need only verbal/nonverbal cueing or touching/steadying/contact guard assistance fro m one helper? Yes. 1. [id number] ADMISSION PERFORMANCE: Supervision or touching assistance CODE: 04 4 STEPS: 4 STEPS - STEP 1: Does the patient complete the activity by him/herself with no assistance (physical, verbal/nonverbal cueing, setup/clean-up)? No. 4 STEPS - STEP 2: Does the patient need only setup/clean-up assistance from one helper? No. 4 STEPS - STEP 3: Does the patient need only verbal/nonverbal cueing or touching/steadying/contact guard assistance fro m one helper? Yes. 1. [id number] ADMISSION PERFORMANCE: Supervision or touching assistance CODE: 04 12 STEPS: 12 STEPS - STEP 1: Does the patient complete the activity by him/herself with no assistance (physical, verbal/nonverbal cueing, setup/clean-up)? No. 12 STEPS - STEP 2: Does the patient need only setup/clean-up assistance from one helper? No. 12 STEPS - STEP 3: Does the patient need only verbal/nonverbal cueing or touching/steadying/contact guard assistance fro m one helper? Yes. 1. [id number] ADMISSION PERFORMANCE: Supervision or touching assistance CODE: 04 PICKING UP OBJECT: PICKING UP OBJECT - STEP 1: Does the patient complete the activity by him/herself with no assistance (physical, verbal/nonverbal cueing, setup/clean-up)? No. PICKING UP OBJECT - STEP 2: Does the patient need only setup/clean-up assistance from one helper? No. PICKING UP OBJECT - STEP 3: Does the patient need only verbal/nonverbal cueing or touching/steadying/contact guard assistance fro m one helper? Yes. 1. [id number] ADMISSION PERFORMANCE: Supervision or touching assistance CODE: 04 DOES THE PATIENT USE A WHEELCHAIR/SCOOTER? Q1. DOES THE PATIENT USE A WHEELCHAIR/SCOOTER?: No CODE: 0 INDICATE THE TYPE OF WHEELCHAIR/SCOOTER USED: CODE: EXPR INDICATE THE TYPE OF WHEELCHAIR/SCOOTER USED: CODE: EXPR BLADDER AND BOWEL: CODE: EXPR CODE: EXPR SIGNATURE PANEL: The following modified sections: 1. [id number] Admission Performance, 1. [id number] Admission Performance, 1. [id number] Admission Performance, 1. [id number] Admission Performance, 1. [id number] Admission Performance, 1. [id number] Admission Performance, 1. [id number] Admission Performance, 1. [id number] Admission Performance , 1. [id number] Admission Performance, 1. [id number] Admission Performance, 1. [id number] Admission Performanc e, 1. [id number] Admission Performance, 1. [id number] Admission Performance, 1. [id number] Admission Performan ce, 1. [id number] Admission Performance, Q1. Does the patient use a wheelchair/scooter?, Q1. Does the pa tient use a wheelchair/scooter? were [electronically] signed by Paul Pardo PT on Emmy Jul 29 15:47:21 GMT-0500 (Central Daylight Time)
--- NOTE | 2019-07-29 18:16 | R.PN ---
ENCOUNTER DATE AND TIME: 07/29/2019 18:13 (CDT) NAME ERIC CASTILLO DATE OF : 1940 DATE OF ADMISSION: 07/22/2019 18:14 (CDT) Sub-acute in the right superior temporal gyrus CHIEF COMPLAINT: Stroke in right temporal gyrus. SUBJECTIVE: Pt denied any depression. Pt denied any Shortness of Breath. Labs reviewed and are stable. She is making good progress with physical and occupational therapy. VITAL SIGNS Temperature: 97.6 F SBP/DBP: 147/77 Pulse: 83 Resp: 16 MEDICATION ALLERGIES: No Known Drug Allergies (NKDA) ENVIRONMENTAL ALLERGIES: - Substance Allergies None Known - Other Allergies None Known NURSING: - Shower allowing shower - Bladder care per protocol - Skin care per protocol PRECAUTIONS: - Weight Bearing Precaution WBAT left LE ACTIVITIES OOB only with supervision THERAPIES: - Occupational Therapy Cognitive Retraining. Visual Perceptual Training. - Dietary and Nutrition Adequate Nutrition. Nutritional Education. Nutritional Supplements. - Speech Therapy Cognitive Training. Expressive Language Skills. Memory Strategies. Receptive Language Skills. Speech Intelligibility Training. PHYSICAL EXAM - Gen Alert and awake Lying in bed No apparent distress Oriented to: person, time, and place - Skin No breakdown No abnormalities - Eyes No abnormalities - ENMT No abnormalities - Neck No abnormalities - CVS RRR - Chest No abnormalities - Abd Soft - GI + bowel sounds Deferred - No abnormalities - Ext No significant edema. - MSK 4+/5 weakness in left upper and lower extremity - Neuro 4/5 strength left upper and lower extremities. - Psych No abnormalities ASSESSMENT: Pt. is a 79 yo Right-handed white female.On 07/18/2019 Pt. presented to [facility] with sudden o nset of left-side weakness.On 07/18/2019 she was admitted to [facility] with diagnosis Sub-acute in the right superior temporal gyrus .Her impairment category is Stroke 01 - Left Body (Right Brain ) (01.1).Pre-morbidly, Pt. was independent/mod-I in Self-Care, Sphincter Control, Transfers Control, Locomotion, Communication, and Social Cognition; and she had good Sphincter Control.Currently, she alvarez s deficits of Self-Care, Locomotion, Communication, Social Cognition, Endurance, Balance, Safety Awar eness, and Transfers Control.Pt. is now referred to [facility] for acute in-sher tient rehabilitation in order to maximize patient's functional independence in activities of daily li ving, strength, ROM, and mobility.- Rehab Goal Patient has realistic goal of being discharged at assistance level 6-Gian to reside at Home with Fam yonis/Relatives. MDM/PLAN: - Physical Therapy Gait dysfunction - to improve, our physical therapists will perform initial evaluation of pt's statu s upon admission and devise an individualized program for Gait Training, and Wheel Chair mobility Inability to transfer - to improve, our physical therapists will perform initial evaluation of pt's status upon admission and devise an individualized program for Bed mobility Need for home safety evaluation - to improve, our physical therapists will perform initial evaluatio n of pt's status upon admission and devise an individualized program for Home Evaluation Need in caregiver upon discharge - to improve, our physical therapists will perform initial evaluati on of pt's status upon admission and devise an individualized program for Caregiver Training Edema - to improve, our physical therapists will perform initial evaluation of pt's status upon admi ssion and devise an individualized program for Elevation Training, and Lymphedema Therapy New precaution - to improve, our physical therapists will perform initial evaluation of pt's status upon admission and devise an individualized program for Patient precaution education Poor balance - to improve, our physical therapists will perform initial evaluation of pt's status up on admission and devise an individualized program for Balance Training Poor endurance - to improve, our physical therapists will perform initial evaluation of pt's status upon admission and devise an individualized program for Endurance Training Weakness - to improve, our physical therapists will perform initial evaluation of pt's status upon a dmission and devise an individualized program for Aquatic Therapy, Neuromuscular Reeducation, and Str engthening Achieving independence - to improve, our physical therapists will perform initial evaluation of pt's status upon admission and devise an individualized program for Community Reintegration Activities - Occupational Therapy ADL deficits - to improve, our occupation therapists will perform initial evaluation of pt's status upon admission and devise an individualized program for Bathing, Bed mobility, Community Reintegratio n, Cooking, Dressing, Eating, Fine Motor Skills, Grooming, Homemaking, Kitchen Mobility, Laundry, Pat ient Education, Safety Awareness, Splinting - Positioning, Transfers(Toilet, Tub, Shower), and Wheel Chair Management Cognitive deficits - to improve, our occupation therapists will perform initial evaluation of pt's s tatus upon admission and devise an individualized program for Cognition - orientation Need for career guidance counselor - to improve, our occupation therapists will perform initial evaluation of pt's status upon admission and devise an individualized program for Caregiver Training Weakness - to improve, our occupation therapists will perform initial evaluation of pt's status upon admission and devise an individualized program for Aquatic Therapy, Balance, Endurance, UE ROM, and UE strengthening - Other See attached MAR (Medication Administration Record) - Diet Type Continue Regular - Diet - Liquid Texture Continue Regular - Tube Feed Continue N/A - Bladder care per protocol - Weight Bearing Precaution WBAT left LE - Skin care per protocol - Diet - Solid Texture Continue Regular - Shower allowing shower for Dementia, TBI, Stroke, or others FUNCTIONAL STATUS: UPDATED AT WEEKLY TEAM CONFERENCE - Bladder Same Bladder control device used: diaper Same accident frequency: 7-Ind - No accidents in the past 7 days - Bowel Same accident frequency: 7-Ind - No accidents in the past 7 days - Walking Same score based on distance walked: 1(<=50ft) - Wheelchair Same score based on distance traveled: 1(<=50ft) FUNCTIONAL STATUS: - Self-Care A. Eating sup B. Grooming sup C. Bathing maxA D. Dressing - Upper modA E. Dressing - Lower maxA F. Toileting Dep - Sphincter Control G: Bladder control Dep H: Bowel control Dep - Transfers Control I. Bed/Chair/Wheelchair Ind J. Toilet Brady K. Tub/Shower Brady - Locomotion L. Walk/Wheelchair (C) Dep L. Walk/Wheelchair (W) Dep M. Stairs ADNO - Communication N. Comprehension (B) Brady O. Expression (B) Brady - Social Cognition P. Social Interaction Brady Q. Problem Solving modA R. Memory modA - Endurance Poor - Balance Poor - Safety Awareness Poor QI SCORES: - Self-Care A. Eating 05-Setup or clean-up assistance B. Oral hygiene 05-Setup or clean-up assistance C. Toileting hygiene 02-Substantial/maximal assistance E. Shower/bathe self 02-Substantial/maximal assistance F. Upper body dressing 03-Partial/moderate assistance G. Lower body dressing 02-Substantial/maximal assistance H. Putting on/taking off footwear 01-Dependent - Mobility A. Roll left and right 04-Supervision or touching assistance B. Sit to lying 04-Supervision or touching assistance C. Lying to sitting on side of bed 04-Supervision or touching assistance D. Sit to stand 04-Supervision or touching assistance E. Chair/[id number] transfer 04-Supervision or touching assistance F. Toilet transfer 03-Partial/moderate assistance G. Car transfer 88-Not attempted due to medical condition or safety concerns I. Walk 10 feet 04-Supervision or touching assistance J. Walk 50 feet with two turns 88-Not attempted due to medical condition or safety concerns K. Walk 150 feet 88-Not attempted due to medical condition or safety concerns L. Walking 10 feet on uneven surfaces 88-Not attempted due to medical condition or safety concerns M. 1 step (curb) 88-Not attempted due to medical condition or safety concerns N. 4 steps 88-Not attempted due to medical condition or safety concerns O. 12 steps 88-Not attempted due to medical condition or safety concerns P. Picking up object 88-Not attempted due to medical condition or safety concerns R. Wheel 50 feet with two turns 88-Not attempted due to medical condition or safety concerns S. Wheel 150 feet 88-Not attempted due to medical condition or safety concerns - Bladder and Bowel Bladder continence 4-Always incontinent Bowel continence 3-Always incontinent CURRENT FUNC. DEFICITS: Self-Care, Locomotion, Communication, Social Cognition, Endurance, Balance, Safety Awareness, and Tra nsfers Control SIGNATURE PANEL: (CDT)
[2019-07-29] MEDS: ATORVASTATIN 20 MG TAB PO SCH (20:21)
[2019-07-29] MEDS: MELATONIN 3 MG TABLET PO PRN (20:21)
[2019-07-29] MEDS: MIRTAZAPINE 15 MG TAB PO SCH (20:21)
[2019-07-29] MEDS ORDERED: DOCUSATE NA/SENNA CONC 1 TAB PO SCH (21:00)
[2019-07-30] MEDS: METOPROLOL TAR 25 MG TAB PO SCH ×2 (05:23→17:16)
[2019-07-30] MEDS: LEVOTHYROXINE SOD 0.1 MG TAB PO SCH (06:48)
[2019-07-30] MEDS: GABAPENTIN 100 MG CAP PO SCH ×3 (07:48→20:57)
[2019-07-30] MEDS: ASPIRIN 81 MG CHEWABLE TABLET PO SCH (07:48)
[2019-07-30] MEDS: FAMOTIDINE 20 MG TAB PO SCH ×2 (07:48→20:56)
[2019-07-30] MEDS: APIXABAN 5 MG TABLET PO SCH ×2 (07:48→20:56)
--- NOTE | 2019-07-30 09:54 | P.RH.PN ---
Estimated Length of Stay: 20 Expected Discharge Date: 08/10/19 Discharge Disposition Plan: Home Family Support: Yes Custodial Goal: Mobility, Transfers, Self Care Vital Signs: Last Vital Signs Temp 97.9 F 07/30/19 07:10 Pulse 72 07/30/19 05:23 Resp 18 07/30/19 07:10 BP 99/60 07/30/19 07:10 Pulse Ox 96 07/30/19 07:10 Laboratory: Laboratory Last Values WBC 7.2 K/uL (4.3-10.9) D 07/29/19 05:32 RBC 4.14 M/uL (3.86-4.86) 07/29/19 05:32 Hgb 12.3 g/dL (12.0-15.0) 07/29/19 05:32 Hct 35.3 % (36.0-45.0) L 07/29/19 05:32 MCV 85.3 fL (80-100) 07/29/19 05:32 MCH 29.6 pg (27.0-35.0) 07/29/19 05:32 MCHC 34.7 g/dL (32.0-36.0) 07/29/19 05:32 RDW 13.8 % (12.1-15.2) 07/29/19 05:32 Plt Count 325 K/uL (152-406) 07/29/19 05:32 MPV 7.1 fL (7.6-11.3) L 07/29/19 05:32 Neutrophils % 54.8 % (41.7-73.7) 07/29/19 05:32 Lymphocytes % 32.5 % (15.3-44.8) 07/29/19 05:32 Monocytes % 8.6 % (3.3-12.3) 07/29/19 05:32 Eosinophils % 2.9 % (0-4.4) 07/29/19 05:32 Basophils % 1.2 % (0-1.3) 07/29/19 05:32 Absolute Neutrophils 3.9 K/uL (1.8-8.0) 07/29/19 05:32 Absolute Lymphocytes 2.3 K/uL (0.7-4.9) 07/29/19 05:32 Absolute Monocytes 0.6 K/uL (0.1-1.3) 07/29/19 05:32 Absolute Eosinophils 0.2 K/uL (0-0.5) 07/29/19 05:32 Absolute Basophils 0.1 K/uL (0-0.5) 07/29/19 05:32 Sodium 142 mmol/L (136-145) 07/29/19 05:32 Potassium 4.2 mmol/L (3.5-5.1) 07/29/19 05:32 Chloride 106 mmol/L (98-107) 07/29/19 05:32 Carbon Dioxide 30 mmol/L (21-32) 07/29/19 05:32 BUN 29 mg/dL (7-18) H 07/29/19 05:32 Creatinine 1.42 mg/dL (0.55-1.3) H 07/29/19 05:32 Estimated GFR 36 mL/min (=/>90) L 07/29/19 05:32 Glucose 107 mg/dL (74-106) H 07/29/19 05:32 Calcium 9.6 mg/dL (8.5-10.1) 07/29/19 05:32 Magnesium 2.0 mg/dL (1.8-2.4) 07/29/19 05:32 Albumin 3.3 g/dL (3.4-5.0) L 07/29/19 05:32 Prealbumin 22.4 mg/dL (20-40) 07/29/19 05:32 Weight: 167 lb 9.6 oz Wound Present: No Closed Surgical Incision Present: No Negative Pressure Wound Therapy Present: No Physician Update: Labs reviewed. 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 Will encourage more free water. She is doing well physically, walking 1000' and 145 stairs with standby assistance. She has mixed expressive and receptive aphasia with difficulty following commands. She has poor safety awareness. She has more time with therapy. Medical Issues: Patient is always continent with bladde and bowel. Patient is positive for UTI from other facility, Keflex 500mg Q12H ongoing. Pain Issues: Patient is taking Gabapentin 100mg BID PO and [place] 5/325mg Q6H PO PRN Functional Improvement: pt has been demonstrating progress with her balance and stability during ambulation. pt is able to perform all functional activities without the need for physical assist. pt is not able to Independently perform functional mobility independently at this time due to poor safety awareness and decision making. Efforts will be made to improve pt's safety awareness throughout the next week in attempts to get pt to be independent. Functional Improvement Occupational Therapy: cont to increase pt's orientation for spatial relations with sequencing when completing dressing tasks by increasing pt's FM/GM coordination. Cont to increase pt's safety awareness for all static and dynamic standing tasks for bathing and for functional transfers. Cont to increase pt's overall UB strength and ROM for adl tasks. Speech Therapy Update: Patient presents with mod-severe mixed receptive and expressive aphasia and I strongly suspect underlying cognitive issues as well. Patient was more confused today than usual. Patient required CONSTANT supervision and redirection and was extremely preoccupied with where her daughter Cesia was. Patient is at MAX A for Auditory Comprehension, Partial to Max A for Verbal Expression, Partial A for Social Interaction, Dependent for PROBLEM SOLVING and MAX to Dependent for Memory. Patient is NOT safe to return home by herself and will likely require 24-hour supervision for her safety and well being. 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 Please see the Rehabilitation Signature page for all necessary signatures.
[2019-07-30] MEDS: ALPRAZOLAM 1 MG TABLET PO PRN (15:50)
--- NOTE | 2019-07-30 15:58 | FAST ---
ENCOUNTER DATE AND TIME: 07/30/2019 08:00 (CDT) NAME ERIC CASTILLO DATE OF : 1940 DATE OF ADMISSION: 07/22/2019 18:14 (CDT) PHONE: AGE: 79 SSN# [id number] GENDER: Female ENCOUNTER PHYSICIAN: Dr. Pasha Trevino M.D. ADMISSION DIAGNOSIS: - Stroke 01 - Left Body (Right Brain) (01.1) Sub-acute in the right superior temporal gyrus . EATING: Not assessed/no information CODE: - ORAL HYGIENE: ORAL HYGIENE - STEP 1: Does the patient complete the activity by him/herself with no assistance (physical, verbal/nonverbal cueing, setup/clean-up)? No. ORAL HYGIENE - STEP 2: Does the patient need only setup/clean-up assistance from one helper? No. ORAL HYGIENE - STEP 3: Does the patient need only verbal/nonverbal cueing or touching/steadying/contact guard assistance fro m one helper? Yes. 1. [id number] ADMISSION PERFORMANCE: Supervision or touching assistance CODE: 04 TOILETING HYGIENE: TOILETING HYGIENE - STEP 1: Does the patient complete the activity by him/herself with no assistance (physical, verbal/nonverbal cueing, setup/clean-up)? No. TOILETING HYGIENE - STEP 2: Does the patient need only setup/clean-up assistance from one helper? No. TOILETING HYGIENE - STEP 3: Does the patient need only verbal/nonverbal cueing or touching/steadying/contact guard assistance fro m one helper? Yes. 1. [id number] ADMISSION PERFORMANCE: Supervision or touching assistance CODE: 04 BATHING: SHOWER/BATHE SELF - STEP 1: Does the patient complete the activity by him/herself with no assistance (physical, verbal/nonverbal cueing, setup/clean-up)? No. SHOWER/BATHE SELF - STEP 2: Does the patient need only setup/clean-up assistance from one helper? No. SHOWER/BATHE SELF - STEP 3: Does the patient need only verbal/nonverbal cueing or touching/steadying/contact guard assistance fro m one helper? Yes. 1. [id number] ADMISSION PERFORMANCE: Supervision or touching assistance CODE: 04 DRESSING - UPPER BODY: DRESSING - UPPER BODY - STEP 1: Does the patient complete the activity by him/herself with no assistance (physical, verbal/nonverbal cueing, setup/clean-up)? No. DRESSING - UPPER BODY - STEP 2: Does the patient need only setup/clean-up assistance from one helper? No. DRESSING - UPPER BODY - STEP 3: Does the patient need only verbal/nonverbal cueing or touching/steadying/contact guard assistance fro m one helper? Yes. 1. [id number] ADMISSION PERFORMANCE: Supervision or touching assistance CODE: 04 DRESSING - LOWER BODY: DRESSING - LOWER BODY - STEP 1: Does the patient complete the activity by him/herself with no assistance (physical, verbal/nonverbal cueing, setup/clean-up)? No. DRESSING - LOWER BODY - STEP 2: Does the patient need only setup/clean-up assistance from one helper? No. DRESSING - LOWER BODY - STEP 3: Does the patient need only verbal/nonverbal cueing or touching/steadying/contact guard assistance fro m one helper? Yes. 1. [id number] ADMISSION PERFORMANCE: Supervision or touching assistance CODE: 04 PUTTING ON/TAKING OFF FOOTWEAR: FOOTWEAR - STEP 1: Does the patient complete the activity by him/herself with no assistance (physical, verbal/nonverbal cueing, setup/clean-up)? No. FOOTWEAR - STEP 2: Does the patient need only setup/clean-up assistance from one helper? No. FOOTWEAR - STEP 3: Does the patient need only verbal/nonverbal cueing or touching/steadying/contact guard assistance fro m one helper? Yes. 1. [id number] ADMISSION PERFORMANCE: Supervision or touching assistance CODE: 04 DOES THE PATIENT USE A WHEELCHAIR/SCOOTER? CODE: EXPR INDICATE THE TYPE OF WHEELCHAIR/SCOOTER USED: CODE: EXPR INDICATE THE TYPE OF WHEELCHAIR/SCOOTER USED: CODE: EXPR BLADDER AND BOWEL: CODE: EXPR CODE: EXPR SIGNATURE PANEL: The following modified sections: 1. [id number] Admission Performance, 1. [id number] Admission Performance, 1. [id number] Admission Performance, 1. [id number] Admission Performance, 1. [id number] Admission Performance, 1. [id number] Admission Performance, 1. [id number] Admission Performance, 1. [id number] Admission Performance were [electronically] signed by SASHA Car on FriJul 30 2019 15:58:08 [facility]-0500 (Cent[place] Daylight Time)
--- NOTE | 2019-07-30 16:32 | RAD REPORT ---
EXAM DESCRIPTION: USExtrem Venous W Compress Bil07/30/2019 4:25 pm CLINICAL HISTORY: Bilateral leg swelling COMPARISON: none FINDINGS: The common femoral, superficial femoral, popliteal and posterior tibial veins bilaterally are compressible and demonstrate augmentation. Doppler demonstrates good flow. IMPRESSION: No evidence of deep venous thrombosis involving either lower extremity.
[2019-07-30] MEDS: MIRTAZAPINE 15 MG TAB PO SCH (20:56)
[2019-07-30] MEDS: ATORVASTATIN 20 MG TAB PO SCH (20:56)
[2019-07-30] MEDS: MELATONIN 3 MG TABLET PO PRN (21:03)
--- NOTE | 2019-07-31 02:35 | FAST ---
SHIFT START DATE/TIME: 07/29/2019 19:00 (CDT) SHIFT END DATE/TIME: 07/30/2019 07:00 (CDT) NAME ERIC CASTILLO DATE OF : 1940 DATE OF ADMISSION: 07/22/2019 18:14 (CDT) PHONE: AGE: 79 N# [id number] GENDER: Female ENCOUNTER PHYSICIAN: Dr. Pasha Trevino M.D. ADMISSION DIAGNOSIS: - Stroke 01 - Left Body (Right Brain) (01.1) Sub-acute in the right superior temporal gyrus . EATING: Not assessed/no information CODE: - ORAL HYGIENE: ORAL HYGIENE - STEP 1: Does the patient complete the activity by him/herself with no assistance (physical, verbal/nonverbal cueing, setup/clean-up)? No. ORAL HYGIENE - STEP 2: Does the patient need only setup/clean-up assistance from one helper? Yes. 1. [id number] ADMISSION PERFORMANCE: Setup or clean-up assistance CODE: 05 TOILETING HYGIENE: TOILETING HYGIENE - STEP 1: Does the patient complete the activity by him/herself with no assistance (physical, verbal/nonverbal cueing, setup/clean-up)? No. TOILETING HYGIENE - STEP 2: Does the patient need only setup/clean-up assistance from one helper? Yes. 1. [id number] ADMISSION PERFORMANCE: Setup or clean-up assistance CODE: 05 BATHING: Not assessed/no information CODE: - DRESSING - UPPER BODY: Not assessed/no information CODE: - DRESSING - LOWER BODY: Not assessed/no information CODE: - PUTTING ON/TAKING OFF FOOTWEAR: Not assessed/no information CODE: - ROLL LEFT AND RIGHT: ROLL LEFT AND RIGHT - STEP 1: Does the patient complete the activity by him/herself with no assistance (physical, verbal/nonverbal cueing, setup/clean-up)? No. ROLL LEFT AND RIGHT - STEP 2: Does the patient need only setup/clean-up assistance from one helper? No. ROLL LEFT AND RIGHT - STEP 3: Does the patient need only verbal/nonverbal cueing or touching/steadying/contact guard assistance fro m one helper? Yes. 1. [id number] ADMISSION PERFORMANCE: Supervision or touching assistance CODE: 04 SIT TO LYING: SIT TO LYING - STEP 1: Does the patient complete the activity by him/herself with no assistance (physical, verbal/nonverbal cueing, setup/clean-up)? No. SIT TO LYING - STEP 2: Does the patient need only setup/clean-up assistance from one helper? No. SIT TO LYING - STEP 3: Does the patient need only verbal/nonverbal cueing or touching/steadying/contact guard assistance fro m one helper? Yes. 1. [id number] ADMISSION PERFORMANCE: Supervision or touching assistance CODE: 04 LYING TO SITTING: LYING TO SITTING ON SIDE OF BED - STEP 1: Does the patient complete the activity by him/herself with no assistance (physical, verbal/nonverbal cueing, setup/clean-up)? No. LYING TO SITTING ON SIDE OF BED - STEP 2: Does the patient need only setup/clean-up assistance from one helper? No. LYING TO SITTING ON SIDE OF BED - STEP 3: Does the patient need only verbal/nonverbal cueing or touching/steadying/contact guard assistance fro m one helper? Yes. 1. [id number] ADMISSION PERFORMANCE: Supervision or touching assistance CODE: 04 SIT TO STAND: SIT TO STAND - STEP 1: Does the patient complete the activity by him/herself with no assistance (physical, verbal/nonverbal cueing, setup/clean-up)? No. SIT TO STAND - STEP 2: Does the patient need only setup/clean-up assistance from one helper? No. SIT TO STAND - STEP 3: Does the patient need only verbal/nonverbal cueing or touching/steadying/contact guard assistance fro m one helper? Yes. 1. [id number] ADMISSION PERFORMANCE: Supervision or touching assistance CODE: 04 TRANSFER TOILET: TOILET TRANSFER - STEP 1: Does the patient complete the activity by him/herself with no assistance (physical, verbal/nonverbal cueing, setup/clean-up)? No. TOILET TRANSFER - STEP 2: Does the patient need only setup/clean-up assistance from one helper? No. TOILET TRANSFER - STEP 3: Does the patient need only verbal/nonverbal cueing or touching/steadying/contact guard assistance fro m one helper? Yes. 1. [id number] ADMISSION PERFORMANCE: Supervision or touching assistance CODE: 04 TRANSFERS: CAR: Not assessed/no information CODE: - WALK 10 FEET: Not assessed/no information CODE: - 1 STEP (CURB): Not assessed/no information CODE: - PICKING UP OBJECT: Not assessed/no information CODE: - DOES THE PATIENT USE A WHEELCHAIR/SCOOTER? CODE: EXPR WHEEL 50 FEET WITH TWO TURNS: Not assessed/no information CODE: - INDICATE THE TYPE OF WHEELCHAIR/SCOOTER USED: CODE: EXPR WHEEL 150 FEET: Not assessed/no information CODE: - INDICATE THE TYPE OF WHEELCHAIR/SCOOTER USED: CODE: EXPR BLADDER AND BOWEL: H350. BLADDER CONTINENCE (3-DAY ASSESSMENT PERIOD): Always continent (no documented incontinence) CODE: 0 H400. BOWEL CONTINENCE (3-DAY ASSESSMENT PERIOD): Always continent CODE: 0
[2019-07-31] MEDS: METOPROLOL TAR 25 MG TAB PO SCH ×2 (05:02→17:07)
[2019-07-31 05:36] VITALS: BMI 27.1
[2019-07-31] MEDS: LEVOTHYROXINE SOD 0.1 MG TAB PO SCH (06:35)
[2019-07-31] MEDS: ASPIRIN 81 MG CHEWABLE TABLET PO SCH (08:00)
[2019-07-31] MEDS: APIXABAN 5 MG TABLET PO SCH ×2 (08:00→18:30)
[2019-07-31] MEDS: GABAPENTIN 100 MG CAP PO SCH ×3 (08:00→18:30)
[2019-07-31] MEDS: FAMOTIDINE 20 MG TAB PO SCH ×2 (08:00→18:30)
--- NOTE | 2019-07-31 16:39 | FAST ---
SHIFT START DATE/TIME: 07/31/2019 07:00 (CDT) SHIFT END DATE/TIME: 07/31/2019 19:00 (CDT) NAME ERIC CASTILLO DATE OF : 1940 DATE OF ADMISSION: 07/22/2019 18:14 (CDT) PHONE: AGE: 79 N# [id number] GENDER: Female ENCOUNTER PHYSICIAN: Dr. Pasha Trevino M.D. ADMISSION DIAGNOSIS: - Stroke 01 - Left Body (Right Brain) (01.1) Sub-acute in the right superior temporal gyrus . EATING: EATING - STEP 1: Does the patient complete the activity by him/herself with no assistance (physical, verbal/nonverbal cueing, setup/clean-up)? No. EATING - STEP 2: Does the patient need only setup/clean-up assistance from one helper? No. EATING - STEP 3: Does the patient need only verbal/nonverbal cueing or touching/steadying/contact guard assistance fro m one helper? Yes. 1. [id number] ADMISSION PERFORMANCE: Supervision or touching assistance CODE: 04 ORAL HYGIENE: ORAL HYGIENE - STEP 1: Does the patient complete the activity by him/herself with no assistance (physical, verbal/nonverbal cueing, setup/clean-up)? No. ORAL HYGIENE - STEP 2: Does the patient need only setup/clean-up assistance from one helper? No. ORAL HYGIENE - STEP 3: Does the patient need only verbal/nonverbal cueing or touching/steadying/contact guard assistance fro m one helper? Yes. 1. [id number] ADMISSION PERFORMANCE: Supervision or touching assistance CODE: 04 TOILETING HYGIENE: TOILETING HYGIENE - STEP 1: Does the patient complete the activity by him/herself with no assistance (physical, verbal/nonverbal cueing, setup/clean-up)? No. TOILETING HYGIENE - STEP 2: Does the patient need only setup/clean-up assistance from one helper? No. TOILETING HYGIENE - STEP 3: Does the patient need only verbal/nonverbal cueing or touching/steadying/contact guard assistance fro m one helper? Yes. 1. [id number] ADMISSION PERFORMANCE: Supervision or touching assistance CODE: 04 BATHING: Not assessed/no information CODE: - DRESSING - UPPER BODY: DRESSING - UPPER BODY - STEP 1: Does the patient complete the activity by him/herself with no assistance (physical, verbal/nonverbal cueing, setup/clean-up)? No. DRESSING - UPPER BODY - STEP 2: Does the patient need only setup/clean-up assistance from one helper? No. DRESSING - UPPER BODY - STEP 3: Does the patient need only verbal/nonverbal cueing or touching/steadying/contact guard assistance fro m one helper? Yes. 1. [id number] ADMISSION PERFORMANCE: Supervision or touching assistance CODE: 04 DRESSING - LOWER BODY: DRESSING - LOWER BODY - STEP 1: Does the patient complete the activity by him/herself with no assistance (physical, verbal/nonverbal cueing, setup/clean-up)? No. DRESSING - LOWER BODY - STEP 2: Does the patient need only setup/clean-up assistance from one helper? No. DRESSING - LOWER BODY - STEP 3: Does the patient need only verbal/nonverbal cueing or touching/steadying/contact guard assistance fro m one helper? Yes. 1. [id number] ADMISSION PERFORMANCE: Supervision or touching assistance CODE: 04 PUTTING ON/TAKING OFF FOOTWEAR: FOOTWEAR - STEP 1: Does the patient complete the activity by him/herself with no assistance (physical, verbal/nonverbal cueing, setup/clean-up)? No. FOOTWEAR - STEP 2: Does the patient need only setup/clean-up assistance from one helper? No. FOOTWEAR - STEP 3: Does the patient need only verbal/nonverbal cueing or touching/steadying/contact guard assistance fro m one helper? Yes. 1. [id number] ADMISSION PERFORMANCE: Supervision or touching assistance CODE: 04 TRANSFERS: CAR: Not assessed/no information CODE: - WALK 10 FEET: Not assessed/no information CODE: - 1 STEP (CURB): Not assessed/no information CODE: - PICKING UP OBJECT: Not attempted due to medical condition or safety concerns CODE: 88 DOES THE PATIENT USE A WHEELCHAIR/SCOOTER? Q1. DOES THE PATIENT USE A WHEELCHAIR/SCOOTER?: Yes CODE: 1 WHEEL 50 FEET WITH TWO TURNS: WHEEL 50 FEET WITH TWO TURNS - STEP 1: Does the patient complete the activity by him/herself with no assistance (physical, verbal/nonverbal cueing, setup/clean-up)? No. WHEEL 50 FEET WITH TWO TURNS - STEP 2: Does the patient need only setup/clean-up assistance from one helper? No. WHEEL 50 FEET WITH TWO TURNS - STEP 3: Does the patient need only verbal/nonverbal cueing or touching/steadying/contact guard assistance fro m one helper? Yes. 1. [id number] ADMISSION PERFORMANCE: Supervision or touching assistance CODE: 04 INDICATE THE TYPE OF WHEELCHAIR/SCOOTER USED: RR1. INDICATE THE TYPE OF WHEELCHAIR/SCOOTER USED.: Manual CODE: 1 WHEEL 150 FEET: WHEEL 150 FEET - STEP 1: Does the patient complete the activity by him/herself with no assistance (physical, verbal/nonverbal cueing, setup/clean-up)? No. WHEEL 150 FEET - STEP 2: Does the patient need only setup/clean-up assistance from one helper? No. WHEEL 150 FEET - STEP 3: Does the patient need only verbal/nonverbal cueing or touching/steadying/contact guard assistance fro m one helper? Yes. 1. [id number] ADMISSION PERFORMANCE: Supervision or touching assistance CODE: 04 INDICATE THE TYPE OF WHEELCHAIR/SCOOTER USED: CODE: EXPR BLADDER AND BOWEL: H350. BLADDER CONTINENCE (3-DAY ASSESSMENT PERIOD): Always continent (no documented incontinence) CODE: 0 H400. BOWEL CONTINENCE (3-DAY ASSESSMENT PERIOD): Always continent CODE: 0 SIGNATURE PANEL: The following modified sections: 1. [id number] Admission Performance, 1. [id number] Admission Performance, 1. [id number] Admission Performance, 1. [id number] Admission Performance, 1. BG5784p Admission Performance, 1. [id number] Admission Performance, 1. [id number] Admission Performance, 1. RT5037l Admission Performance , 1. [id number] Admission Performance, Q1. Does the patient use a wheelchair/scooter?, 1. [id number] Admiss ion Performance, RR1. Indicate the type of wheelchair/scooter used., 1. [id number] Admission Performance , Code, H350. Bladder Continence (3-day assessment period), H400. Bowel Continence (3-day assessment period) were [electronically] signed by Carri Barney C.N.A. on Sat Jul 31 2019 16:38:26 GMT-0500 ([facility] Daylight Time)
[2019-07-31] MEDS: MIRTAZAPINE 15 MG TAB PO SCH (18:30)
[2019-07-31] MEDS: ATORVASTATIN 20 MG TAB PO SCH (18:30)
[2019-07-31] MEDS: MELATONIN 3 MG TABLET PO PRN (19:58)
[2019-08-01] MEDS: METOPROLOL TAR 25 MG TAB PO SCH ×2 (05:24→17:00)
[2019-08-01] MEDS: LEVOTHYROXINE SOD 0.1 MG TAB PO SCH (07:06)
[2019-08-01] MEDS: GABAPENTIN 100 MG CAP PO SCH ×3 (08:29→18:56)
[2019-08-01] MEDS: ASPIRIN 81 MG CHEWABLE TABLET PO SCH (08:29)
[2019-08-01] MEDS: APIXABAN 5 MG TABLET PO SCH ×2 (08:29→18:55)
[2019-08-01] MEDS: FAMOTIDINE 20 MG TAB PO SCH ×2 (08:29→18:55)
--- NOTE | 2019-08-01 15:37 | FAST ---
SHIFT START DATE/TIME: 08/01/2019 07:00 (CDT) SHIFT END DATE/TIME: 08/01/2019 19:00 (CDT) NAME ERIC CASTILLO DATE OF : 1940 DATE OF ADMISSION: 07/22/2019 18:14 (CDT) PHONE: AGE: 79 N# [id number] GENDER: Female ENCOUNTER PHYSICIAN: Dr. Pasha Trevino M.D. ADMISSION DIAGNOSIS: - Stroke 01 - Left Body (Right Brain) (01.1) Sub-acute in the right superior temporal gyrus . EATING: EATING - STEP 1: Does the patient complete the activity by him/herself with no assistance (physical, verbal/nonverbal cueing, setup/clean-up)? No. EATING - STEP 2: Does the patient need only setup/clean-up assistance from one helper? Yes. 1. [id number] ADMISSION PERFORMANCE: Setup or clean-up assistance CODE: 05 ORAL HYGIENE: ORAL HYGIENE - STEP 1: Does the patient complete the activity by him/herself with no assistance (physical, verbal/nonverbal cueing, setup/clean-up)? No. ORAL HYGIENE - STEP 2: Does the patient need only setup/clean-up assistance from one helper? No. ORAL HYGIENE - STEP 3: Does the patient need only verbal/nonverbal cueing or touching/steadying/contact guard assistance fro m one helper? Yes. 1. [id number] ADMISSION PERFORMANCE: Supervision or touching assistance CODE: 04 TOILETING HYGIENE: TOILETING HYGIENE - STEP 1: Does the patient complete the activity by him/herself with no assistance (physical, verbal/nonverbal cueing, setup/clean-up)? No. TOILETING HYGIENE - STEP 2: Does the patient need only setup/clean-up assistance from one helper? No. TOILETING HYGIENE - STEP 3: Does the patient need only verbal/nonverbal cueing or touching/steadying/contact guard assistance fro m one helper? Yes. 1. [id number] ADMISSION PERFORMANCE: Supervision or touching assistance CODE: 04 BATHING: Not assessed/no information CODE: - DRESSING - UPPER BODY: DRESSING - UPPER BODY - STEP 1: Does the patient complete the activity by him/herself with no assistance (physical, verbal/nonverbal cueing, setup/clean-up)? No. DRESSING - UPPER BODY - STEP 2: Does the patient need only setup/clean-up assistance from one helper? No. DRESSING - UPPER BODY - STEP 3: Does the patient need only verbal/nonverbal cueing or touching/steadying/contact guard assistance fro m one helper? Yes. 1. [id number] ADMISSION PERFORMANCE: Supervision or touching assistance CODE: 04 DRESSING - LOWER BODY: DRESSING - LOWER BODY - STEP 1: Does the patient complete the activity by him/herself with no assistance (physical, verbal/nonverbal cueing, setup/clean-up)? No. DRESSING - LOWER BODY - STEP 2: Does the patient need only setup/clean-up assistance from one helper? No. DRESSING - LOWER BODY - STEP 3: Does the patient need only verbal/nonverbal cueing or touching/steadying/contact guard assistance fro m one helper? Yes. 1. [id number] ADMISSION PERFORMANCE: Supervision or touching assistance CODE: 04 PUTTING ON/TAKING OFF FOOTWEAR: FOOTWEAR - STEP 1: Does the patient complete the activity by him/herself with no assistance (physical, verbal/nonverbal cueing, setup/clean-up)? No. FOOTWEAR - STEP 2: Does the patient need only setup/clean-up assistance from one helper? No. FOOTWEAR - STEP 3: Does the patient need only verbal/nonverbal cueing or touching/steadying/contact guard assistance fro m one helper? Yes. 1. [id number] ADMISSION PERFORMANCE: Supervision or touching assistance CODE: 04 WALK 10 FEET: Not assessed/no information CODE: - 1 STEP (CURB): Not assessed/no information CODE: - PICKING UP OBJECT: Not assessed/no information CODE: - DOES THE PATIENT USE A WHEELCHAIR/SCOOTER? Q1. DOES THE PATIENT USE A WHEELCHAIR/SCOOTER?: Yes CODE: 1 WHEEL 50 FEET WITH TWO TURNS: WHEEL 50 FEET WITH TWO TURNS - STEP 1: Does the patient complete the activity by him/herself with no assistance (physical, verbal/nonverbal cueing, setup/clean-up)? Yes. 1. [id number] ADMISSION PERFORMANCE: Independent CODE: 06 INDICATE THE TYPE OF WHEELCHAIR/SCOOTER USED: RR1. INDICATE THE TYPE OF WHEELCHAIR/SCOOTER USED.: Manual CODE: 1 WHEEL 150 FEET: WHEEL 150 FEET - STEP 1: Does the patient complete the activity by him/herself with no assistance (physical, verbal/nonverbal cueing, setup/clean-up)? No. WHEEL 150 FEET - STEP 2: Does the patient need only setup/clean-up assistance from one helper? No. WHEEL 150 FEET - STEP 3: Does the patient need only verbal/nonverbal cueing or touching/steadying/contact guard assistance fro m one helper? Yes. 1. [id number] ADMISSION PERFORMANCE: Supervision or touching assistance CODE: 04 INDICATE THE TYPE OF WHEELCHAIR/SCOOTER USED: SS1. INDICATE THE TYPE OF WHEELCHAIR/SCOOTER USED.: Manual CODE: 1 BLADDER AND BOWEL: H350. BLADDER CONTINENCE (3-DAY ASSESSMENT PERIOD): Incontinent less than daily (e.g., once or twice during the 3-day assessment period) CODE: 2 H400. BOWEL CONTINENCE (3-DAY ASSESSMENT PERIOD): Always continent CODE: 0 SIGNATURE PANEL: The following modified sections: 1. [id number] Admission Performance, 1. [id number] Admission Performance, 1. KS6568W Admission Performance, 1. LF2024Q Admission Performance, 1. MC8676b Admission Performance, 1. VW9195h Admission Performance, 1. RS2673p Admission Performance, Q1. Does the patient use a wheel chair/scooter?, 1. [id number] Admission Performance, RR1. Indicate the type of wheelchair/scooter used., 1. AV6612B Admission Performance, Code, SS1. Indicate the type of wheelchair/scooter used., H350. Bl adder Continence (3-day assessment period), H400. Bowel Continence (3-day assessment period) were [el ectronically] signed by Carri Barney C.N.A. on FriAug 01 2019 15:37:04 GMT-0500 ([facility])
[2019-08-01] MEDS: ATORVASTATIN 20 MG TAB PO SCH (18:55)
[2019-08-01] MEDS: MELATONIN 3 MG TABLET PO PRN (18:55)
[2019-08-01] MEDS: DOCUSATE NA/SENNA CONC 1 TAB PO PRN (18:56)
[2019-08-01] MEDS: MIRTAZAPINE 15 MG TAB PO SCH (18:56)
[2019-08-02] MEDS: METOPROLOL TAR 25 MG TAB PO SCH ×2 (05:16→17:15)
[2019-08-02] MEDS: LEVOTHYROXINE SOD 0.1 MG TAB PO SCH (06:50)
[2019-08-02] MEDS: APIXABAN 5 MG TABLET PO SCH ×2 (07:29→20:23)
[2019-08-02] MEDS: ASPIRIN 81 MG CHEWABLE TABLET PO SCH (07:29)
[2019-08-02] MEDS: FAMOTIDINE 20 MG TAB PO SCH ×2 (07:30→20:23)
[2019-08-02] MEDS: GABAPENTIN 100 MG CAP PO SCH ×3 (08:54→20:23)
--- NOTE | 2019-08-02 10:31 | FAST ---
SHIFT START DATE/TIME: 08/02/2019 07:00 (CDT) SHIFT END DATE/TIME: 08/02/2019 19:00 (CDT) NAME ERIC CASTILLO DATE OF : 1940 DATE OF ADMISSION: 07/22/2019 18:14 (CDT) PHONE: AGE: 79 N# [id number] GENDER: Female ENCOUNTER PHYSICIAN: Dr. Pasha Trevino M.D. ADMISSION DIAGNOSIS: - Stroke 01 - Left Body (Right Brain) (01.1) Sub-acute in the right superior temporal gyrus . EATING: EATING - STEP 1: Does the patient complete the activity by him/herself with no assistance (physical, verbal/nonverbal cueing, setup/clean-up)? No. EATING - STEP 2: Does the patient need only setup/clean-up assistance from one helper? No. EATING - STEP 3: Does the patient need only verbal/nonverbal cueing or touching/steadying/contact guard assistance fro m one helper? Yes. 1. [id number] ADMISSION PERFORMANCE: Supervision or touching assistance CODE: 04 ORAL HYGIENE: ORAL HYGIENE - STEP 1: Does the patient complete the activity by him/herself with no assistance (physical, verbal/nonverbal cueing, setup/clean-up)? No. ORAL HYGIENE - STEP 2: Does the patient need only setup/clean-up assistance from one helper? No. ORAL HYGIENE - STEP 3: Does the patient need only verbal/nonverbal cueing or touching/steadying/contact guard assistance fro m one helper? Yes. 1. [id number] ADMISSION PERFORMANCE: Supervision or touching assistance CODE: 04 TOILETING HYGIENE: TOILETING HYGIENE - STEP 1: Does the patient complete the activity by him/herself with no assistance (physical, verbal/nonverbal cueing, setup/clean-up)? No. TOILETING HYGIENE - STEP 2: Does the patient need only setup/clean-up assistance from one helper? No. TOILETING HYGIENE - STEP 3: Does the patient need only verbal/nonverbal cueing or touching/steadying/contact guard assistance fro m one helper? Yes. 1. [id number] ADMISSION PERFORMANCE: Supervision or touching assistance CODE: 04 BATHING: Not assessed/no information CODE: - DRESSING - UPPER BODY: Not assessed/no information CODE: - DRESSING - LOWER BODY: Not assessed/no information CODE: - PUTTING ON/TAKING OFF FOOTWEAR: Not assessed/no information CODE: - ROLL LEFT AND RIGHT: Not assessed/no information CODE: - SIT TO LYING: Not assessed/no information CODE: - LYING TO SITTING: Not assessed/no information CODE: - SIT TO STAND: Not assessed/no information CODE: - TRANSFERS: BED, CHAIR: Not assessed/no information CODE: - TRANSFER TOILET: Not assessed/no information CODE: - TRANSFERS: CAR: Not assessed/no information CODE: - WALK 10 FEET: Not assessed/no information CODE: - 1 STEP (CURB): Not assessed/no information CODE: - PICKING UP OBJECT: Not assessed/no information CODE: - DOES THE PATIENT USE A WHEELCHAIR/SCOOTER? CODE: EXPR WHEEL 50 FEET WITH TWO TURNS: Not assessed/no information CODE: - INDICATE THE TYPE OF WHEELCHAIR/SCOOTER USED: CODE: EXPR WHEEL 150 FEET: Not assessed/no information CODE: - INDICATE THE TYPE OF WHEELCHAIR/SCOOTER USED: CODE: EXPR BLADDER AND BOWEL: H350. BLADDER CONTINENCE (3-DAY ASSESSMENT PERIOD): Always continent (no documented incontinence) CODE: 0 H400. BOWEL CONTINENCE (3-DAY ASSESSMENT PERIOD): Always continent CODE: 0 SIGNATURE PANEL: The following modified sections: 1. [id number] Admission Performance, 1. [id number] Admission Performance, 1. [id number] Admission Performance, 1. [id number] Admission Performance, Code, H350. Bladder Continence (3 -day assessment period), H400. Bowel Continence (3-day assessment period) were [electronically] jing d by Dmitri Canales on FriAug 02 2019 10:30:00 GMT-0500 ([place] Daylight Time)
--- NOTE | 2019-08-02 15:39 | FAST ---
ENCOUNTER DATE AND TIME: 08/02/2019 08:00 (CDT) NAME ERIC CASTILLO DATE OF : 1940 DATE OF ADMISSION: 07/22/2019 18:14 (CDT) PHONE: AGE: 79 SSN# [id number] GENDER: Female ENCOUNTER PHYSICIAN: Dr. Pasha Trevino M.D. ADMISSION DIAGNOSIS: - Stroke 01 - Left Body (Right Brain) (01.1) Sub-acute in the right superior temporal gyrus . EATING: Not assessed/no information CODE: - ORAL HYGIENE: ORAL HYGIENE - STEP 1: Does the patient complete the activity by him/herself with no assistance (physical, verbal/nonverbal cueing, setup/clean-up)? No. ORAL HYGIENE - STEP 2: Does the patient need only setup/clean-up assistance from one helper? No. ORAL HYGIENE - STEP 3: Does the patient need only verbal/nonverbal cueing or touching/steadying/contact guard assistance fro m one helper? Yes. 1. [id number] ADMISSION PERFORMANCE: Supervision or touching assistance CODE: 04 TOILETING HYGIENE: Not assessed/no information CODE: - BATHING: SHOWER/BATHE SELF - STEP 1: Does the patient complete the activity by him/herself with no assistance (physical, verbal/nonverbal cueing, setup/clean-up)? No. SHOWER/BATHE SELF - STEP 2: Does the patient need only setup/clean-up assistance from one helper? No. SHOWER/BATHE SELF - STEP 3: Does the patient need only verbal/nonverbal cueing or touching/steadying/contact guard assistance fro m one helper? Yes. 1. [id number] ADMISSION PERFORMANCE: Supervision or touching assistance CODE: 04 DRESSING - UPPER BODY: DRESSING - UPPER BODY - STEP 1: Does the patient complete the activity by him/herself with no assistance (physical, verbal/nonverbal cueing, setup/clean-up)? No. DRESSING - UPPER BODY - STEP 2: Does the patient need only setup/clean-up assistance from one helper? No. DRESSING - UPPER BODY - STEP 3: Does the patient need only verbal/nonverbal cueing or touching/steadying/contact guard assistance fro m one helper? Yes. 1. [id number] ADMISSION PERFORMANCE: Supervision or touching assistance CODE: 04 DRESSING - LOWER BODY: DRESSING - LOWER BODY - STEP 1: Does the patient complete the activity by him/herself with no assistance (physical, verbal/nonverbal cueing, setup/clean-up)? No. DRESSING - LOWER BODY - STEP 2: Does the patient need only setup/clean-up assistance from one helper? No. DRESSING - LOWER BODY - STEP 3: Does the patient need only verbal/nonverbal cueing or touching/steadying/contact guard assistance fro m one helper? Yes. 1. [id number] ADMISSION PERFORMANCE: Supervision or touching assistance CODE: 04 PUTTING ON/TAKING OFF FOOTWEAR: FOOTWEAR - STEP 1: Does the patient complete the activity by him/herself with no assistance (physical, verbal/nonverbal cueing, setup/clean-up)? No. FOOTWEAR - STEP 2: Does the patient need only setup/clean-up assistance from one helper? No. FOOTWEAR - STEP 3: Does the patient need only verbal/nonverbal cueing or touching/steadying/contact guard assistance fro m one helper? Yes. 1. [id number] ADMISSION PERFORMANCE: Supervision or touching assistance CODE: 04 DOES THE PATIENT USE A WHEELCHAIR/SCOOTER? CODE: EXPR INDICATE THE TYPE OF WHEELCHAIR/SCOOTER USED: CODE: EXPR INDICATE THE TYPE OF WHEELCHAIR/SCOOTER USED: CODE: EXPR BLADDER AND BOWEL: CODE: EXPR CODE: EXPR SIGNATURE PANEL: The following modified sections: 1. [id number] Admission Performance, 1. [id number] Admission Performance, 1. FN2201a Admission Performance, 1. YV8668m Admission Performance, 1. LF4698a Admission Performance were [electronically] signed by SASHA Car on FriAug 02 2019 15:38:11 GMT-0500 ([place] Daylight Time)
[2019-08-02] MEDS: MIRTAZAPINE 15 MG TAB PO SCH (20:22)
[2019-08-02] MEDS: ATORVASTATIN 20 MG TAB PO SCH (20:23)
[2019-08-02] MEDS: MELATONIN 3 MG TABLET PO PRN (20:23)
[2019-08-02] MEDS: DOCUSATE NA/SENNA CONC 1 TAB PO PRN (20:23)
--- NOTE | 2019-08-02 22:08 | R.PN ---
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 SUBJECTIVE: Pt denied any depression. Pt denied any Shortness of Breath. Labs reviewed and are stable. She is making good progress with physical and occupational therapy. She making poor progress with cognitive functioning. VITAL SIGNS Temperature: 97.6 F SBP/DBP: 152/76 Pulse: 79 Resp: 16 MEDICATION ALLERGIES: No Known Drug Allergies (NKDA) ENVIRONMENTAL ALLERGIES: - Substance Allergies None Known - Other Allergies None Known NURSING: - Shower allowing shower - Bladder care per protocol - Skin care per protocol PRECAUTIONS: - Weight Bearing Precaution WBAT left LE ACTIVITIES OOB only with supervision THERAPIES: - Occupational Therapy Cognitive Retraining. Visual Perceptual Training. - Dietary and Nutrition Adequate Nutrition. Nutritional Education. Nutritional Supplements. - Speech Therapy Cognitive Training. Expressive Language Skills. Memory Strategies. Receptive Language Skills. Speech Intelligibility Training. PHYSICAL EXAM - Gen Alert and awake Lying in bed No apparent distress Oriented to: person, time, and place - Skin No breakdown No abnormalities - Eyes No abnormalities - ENMT No abnormalities - Neck No abnormalities - CVS RRR - Chest No abnormalities - Abd Soft - GI + bowel sounds Deferred - No abnormalities - Ext No significant edema. - MSK 4+/5 weakness in left upper and lower extremity - Neuro 4/5 strength left upper and lower extremities. - Psych No abnormalities ASSESSMENT: Pt. is a 79 yo Right-handed white female.On 07/18/2019 Pt. presented to [facility] with sudden o nset of left-side weakness.On 07/18/2019 she was admitted to [facility] with diagnosis Sub-acute in the right superior temporal gyrus .Her impairment category is Stroke 01 - Left Body (Right Brain ) (01.1).Pre-morbidly, Pt. was independent/mod-I in Self-Care, Sphincter Control, Transfers Control, Locomotion, Communication, and Social Cognition; and she had good Sphincter Control.Currently, she alvarez s deficits of Self-Care, Locomotion, Communication, Social Cognition, Endurance, Balance, Safety Awar eness, and Transfers Control.Pt. is now referred to [facility] for acute in-pa tient rehabilitation in order to maximize patient's functional independence in activities of daily li ving, strength, ROM, and mobility.- Rehab Goal Patient has realistic goal of being discharged at assistance level 6-Gian to reside at Home with Fam yonis/Relatives. MDM/PLAN: - Physical Therapy Gait dysfunction - to improve, our physical therapists will perform initial evaluation of pt's statu s upon admission and devise an individualized program for Gait Training, and Wheel Chair mobility Inability to transfer - to improve, our physical therapists will perform initial evaluation of pt's status upon admission and devise an individualized program for Bed mobility Need for home safety evaluation - to improve, our physical therapists will perform initial evaluatio n of pt's status upon admission and devise an individualized program for Home Evaluation Need in caregiver upon discharge - to improve, our physical therapists will perform initial evaluati on of pt's status upon admission and devise an individualized program for Caregiver Training Edema - to improve, our physical therapists will perform initial evaluation of pt's status upon admi ssion and devise an individualized program for Elevation Training, and Lymphedema Therapy New precaution - to improve, our physical therapists will perform initial evaluation of pt's status upon admission and devise an individualized program for Patient precaution education Poor balance - to improve, our physical therapists will perform initial evaluation of pt's status up on admission and devise an individualized program for Balance Training Poor endurance - to improve, our physical therapists will perform initial evaluation of pt's status upon admission and devise an individualized program for Endurance Training Weakness - to improve, our physical therapists will perform initial evaluation of pt's status upon a dmission and devise an individualized program for Aquatic Therapy, Neuromuscular Reeducation, and Str engthening Achieving independence - to improve, our physical therapists will perform initial evaluation of pt's status upon admission and devise an individualized program for Community Reintegration Activities - Occupational Therapy ADL deficits - to improve, our occupation therapists will perform initial evaluation of pt's status upon admission and devise an individualized program for Bathing, Bed mobility, Community Reintegratio n, Cooking, Dressing, Eating, Fine Motor Skills, Grooming, Homemaking, Kitchen Mobility, Laundry, Pat ient Education, Safety Awareness, Splinting - Positioning, Transfers(Toilet, Tub, Shower), and Wheel Chair Management Cognitive deficits - to improve, our occupation therapists will perform initial evaluation of pt's s tatus upon admission and devise an individualized program for Cognition - orientation Need for care transport nurse - to improve, our occupation therapists will perform initial evaluation of pt's status upon admission and devise an individualized program for Caregiver Training Weakness - to improve, our occupation therapists will perform initial evaluation of pt's status upon admission and devise an individualized program for Aquatic Therapy, Balance, Endurance, UE ROM, and UE strengthening - Other See attached MAR (Medication Administration Record) - Diet Type Continue Regular - Diet - Liquid Texture Continue Regular - Tube Feed Continue N/A - Bladder care per protocol - Weight Bearing Precaution WBAT left LE - Skin care per protocol - Diet - Solid Texture Continue Regular - Shower allowing shower for Dementia, TBI, Stroke, or others FUNCTIONAL STATUS: UPDATED AT WEEKLY TEAM CONFERENCE - Bladder Same Bladder control device used: diaper Same accident frequency: 7-Ind - No accidents in the past 7 days - Bowel Same accident frequency: 7-Ind - No accidents in the past 7 days - Walking Same score based on distance walked: 1(<=50ft) - Wheelchair Same score based on distance traveled: 1(<=50ft) FUNCTIONAL STATUS: - Self-Care A. Eating sup B. Grooming sup C. Bathing maxA D. Dressing - Upper modA E. Dressing - Lower maxA F. Toileting Dep - Sphincter Control G: Bladder control Dep H: Bowel control Dep - Transfers Control I. Bed/Chair/Wheelchair Ind J. Toilet Brady K. Tub/Shower Brady - Locomotion L. Walk/Wheelchair (C) Dep L. Walk/Wheelchair (W) Dep M. Stairs ADNO - Communication N. Comprehension (B) Brady O. Expression (B) Brady - Social Cognition P. Social Interaction Brady Q. Problem Solving modA R. Memory modA - Endurance Poor - Balance Poor - Safety Awareness Poor QI SCORES: - Self-Care A. Eating 05-Setup or clean-up assistance B. Oral hygiene 05-Setup or clean-up assistance C. Toileting hygiene 02-Substantial/maximal assistance E. Shower/bathe self 02-Substantial/maximal assistance F. Upper body dressing 03-Partial/moderate assistance G. Lower body dressing 02-Substantial/maximal assistance H. Putting on/taking off footwear 01-Dependent - Mobility A. Roll left and right 04-Supervision or touching assistance B. Sit to lying 04-Supervision or touching assistance C. Lying to sitting on side of bed 04-Supervision or touching assistance D. Sit to stand 04-Supervision or touching assistance E. Chair/alf-da-wejxh transfer 04-Supervision or touching assistance F. Toilet transfer 03-Partial/moderate assistance G. Car transfer 88-Not attempted due to medical condition or safety concerns I. Walk 10 feet 04-Supervision or touching assistance J. Walk 50 feet with two turns 88-Not attempted due to medical condition or safety concerns K. Walk 150 feet 88-Not attempted due to medical condition or safety concerns L. Walking 10 feet on uneven surfaces 88-Not attempted due to medical condition or safety concerns M. 1 step (curb) 88-Not attempted due to medical condition or safety concerns N. 4 steps 88-Not attempted due to medical condition or safety concerns O. 12 steps 88-Not attempted due to medical condition or safety concerns P. Picking up object 88-Not attempted due to medical condition or safety concerns R. Wheel 50 feet with two turns 88-Not attempted due to medical condition or safety concerns S. Wheel 150 feet 88-Not attempted due to medical condition or safety concerns - Bladder and Bowel Bladder continence 4-Always incontinent Bowel continence 3-Always incontinent CURRENT FUNC. DEFICITS: Self-Care, Locomotion, Communication, Social Cognition, Endurance, Balance, Safety Awareness, and Tra nsfers Control SIGNATURE PANEL: (CDT)
[2019-08-03] MEDS: METOPROLOL TAR 25 MG TAB PO SCH (05:31)
[2019-08-03] MEDS: LEVOTHYROXINE SOD 0.1 MG TAB PO SCH (06:38)
[2019-08-03] MEDS: ASPIRIN 81 MG CHEWABLE TABLET PO SCH (07:12)
[2019-08-03] MEDS: FAMOTIDINE 20 MG TAB PO SCH (07:12)
[2019-08-03] MEDS: APIXABAN 5 MG TABLET PO SCH (07:12)
[2019-08-03 07:13] VITALS: BP 127/70; TEMP 96.8
[2019-08-03] MEDS: GABAPENTIN 100 MG CAP PO SCH ×2 (07:13→14:28)
--- NOTE | 2019-08-03 10:16 | FAST ---
SHIFT START DATE/TIME: 08/03/2019 07:00 (CDT) SHIFT END DATE/TIME: 08/03/2019 19:00 (CDT) NAME ERIC CASTILLO DATE OF : 1940 DATE OF ADMISSION: 07/22/2019 18:14 (CDT) PHONE: AGE: 79 N# [id number] GENDER: Female ENCOUNTER PHYSICIAN: Dr. Pasha Trevino M.D. ADMISSION DIAGNOSIS: - Stroke 01 - Left Body (Right Brain) (01.1) Sub-acute in the right superior temporal gyrus . EATING: EATING - STEP 1: Does the patient complete the activity by him/herself with no assistance (physical, verbal/nonverbal cueing, setup/clean-up)? No. EATING - STEP 2: Does the patient need only setup/clean-up assistance from one helper? No. EATING - STEP 3: Does the patient need only verbal/nonverbal cueing or touching/steadying/contact guard assistance fro m one helper? Yes. 1. [id number] ADMISSION PERFORMANCE: Supervision or touching assistance CODE: 04 ORAL HYGIENE: ORAL HYGIENE - STEP 1: Does the patient complete the activity by him/herself with no assistance (physical, verbal/nonverbal cueing, setup/clean-up)? No. ORAL HYGIENE - STEP 2: Does the patient need only setup/clean-up assistance from one helper? No. ORAL HYGIENE - STEP 3: Does the patient need only verbal/nonverbal cueing or touching/steadying/contact guard assistance fro m one helper? Yes. 1. [id number] ADMISSION PERFORMANCE: Supervision or touching assistance CODE: 04 TOILETING HYGIENE: TOILETING HYGIENE - STEP 1: Does the patient complete the activity by him/herself with no assistance (physical, verbal/nonverbal cueing, setup/clean-up)? No. TOILETING HYGIENE - STEP 2: Does the patient need only setup/clean-up assistance from one helper? No. TOILETING HYGIENE - STEP 3: Does the patient need only verbal/nonverbal cueing or touching/steadying/contact guard assistance fro m one helper? Yes. 1. [id number] ADMISSION PERFORMANCE: Supervision or touching assistance CODE: 04 BATHING: Not assessed/no information CODE: - DRESSING - UPPER BODY: DRESSING - UPPER BODY - STEP 1: Does the patient complete the activity by him/herself with no assistance (physical, verbal/nonverbal cueing, setup/clean-up)? No. DRESSING - UPPER BODY - STEP 2: Does the patient need only setup/clean-up assistance from one helper? No. DRESSING - UPPER BODY - STEP 3: Does the patient need only verbal/nonverbal cueing or touching/steadying/contact guard assistance fro m one helper? Yes. 1. [id number] ADMISSION PERFORMANCE: Supervision or touching assistance CODE: 04 DRESSING - LOWER BODY: DRESSING - LOWER BODY - STEP 1: Does the patient complete the activity by him/herself with no assistance (physical, verbal/nonverbal cueing, setup/clean-up)? No. DRESSING - LOWER BODY - STEP 2: Does the patient need only setup/clean-up assistance from one helper? No. DRESSING - LOWER BODY - STEP 3: Does the patient need only verbal/nonverbal cueing or touching/steadying/contact guard assistance fro m one helper? Yes. 1. [id number] ADMISSION PERFORMANCE: Supervision or touching assistance CODE: 04 PUTTING ON/TAKING OFF FOOTWEAR: Not assessed/no information CODE: - ROLL LEFT AND RIGHT: Not assessed/no information CODE: - SIT TO LYING: SIT TO LYING - STEP 1: Does the patient complete the activity by him/herself with no assistance (physical, verbal/nonverbal cueing, setup/clean-up)? No. SIT TO LYING - STEP 2: Does the patient need only setup/clean-up assistance from one helper? No. SIT TO LYING - STEP 3: Does the patient need only verbal/nonverbal cueing or touching/steadying/contact guard assistance fro m one helper? Yes. 1. [id number] ADMISSION PERFORMANCE: Supervision or touching assistance CODE: 04 LYING TO SITTING: LYING TO SITTING ON SIDE OF BED - STEP 1: Does the patient complete the activity by him/herself with no assistance (physical, verbal/nonverbal cueing, setup/clean-up)? No. LYING TO SITTING ON SIDE OF BED - STEP 2: Does the patient need only setup/clean-up assistance from one helper? No. LYING TO SITTING ON SIDE OF BED - STEP 3: Does the patient need only verbal/nonverbal cueing or touching/steadying/contact guard assistance fro m one helper? Yes. 1. [id number] ADMISSION PERFORMANCE: Supervision or touching assistance CODE: 04 SIT TO STAND: SIT TO STAND - STEP 1: Does the patient complete the activity by him/herself with no assistance (physical, verbal/nonverbal cueing, setup/clean-up)? No. SIT TO STAND - STEP 2: Does the patient need only setup/clean-up assistance from one helper? No. SIT TO STAND - STEP 3: Does the patient need only verbal/nonverbal cueing or touching/steadying/contact guard assistance fro m one helper? Yes. 1. [id number] ADMISSION PERFORMANCE: Supervision or touching assistance CODE: 04 TRANSFERS: BED, CHAIR: CHAIR/[id number] TRANSFER - STEP 1: Does the patient complete the activity by him/herself with no assistance (physical, verbal/nonverbal cueing, setup/clean-up)? No. CHAIR/[id number] TRANSFER - STEP 2: Does the patient need only setup/clean-up assistance from one helper? No. CHAIR/[id number] TRANSFER - STEP 3: Does the patient need only verbal/nonverbal cueing or touching/steadying/contact guard assistance fro m one helper? Yes. 1. [id number] ADMISSION PERFORMANCE: Supervision or touching assistance CODE: 04 TRANSFER TOILET: TOILET TRANSFER - STEP 1: Does the patient complete the activity by him/herself with no assistance (physical, verbal/nonverbal cueing, setup/clean-up)? No. TOILET TRANSFER - STEP 2: Does the patient need only setup/clean-up assistance from one helper? No. TOILET TRANSFER - STEP 3: Does the patient need only verbal/nonverbal cueing or touching/steadying/contact guard assistance fro m one helper? Yes. 1. [id number] ADMISSION PERFORMANCE: Supervision or touching assistance CODE: 04 TRANSFERS: CAR: Not assessed/no information CODE: - WALK 10 FEET: Not assessed/no information CODE: - 1 STEP (CURB): Not assessed/no information CODE: - PICKING UP OBJECT: Not assessed/no information CODE: - DOES THE PATIENT USE A WHEELCHAIR/SCOOTER? CODE: EXPR WHEEL 50 FEET WITH TWO TURNS: Not assessed/no information CODE: - INDICATE THE TYPE OF WHEELCHAIR/SCOOTER USED: CODE: EXPR WHEEL 150 FEET: Not assessed/no information CODE: - INDICATE THE TYPE OF WHEELCHAIR/SCOOTER USED: CODE: EXPR BLADDER AND BOWEL: H350. BLADDER CONTINENCE (3-DAY ASSESSMENT PERIOD): Always continent (no documented incontinence) CODE: 0 H400. BOWEL CONTINENCE (3-DAY ASSESSMENT PERIOD): Always continent CODE: 0 SIGNATURE PANEL: The following modified sections: 1. [id number] Admission Performance, 1. [id number] Admission Performance, 1. [id number] Admission Performance, 1. [id number] Admission Performance, 1. [id number] Admission Performance, 1. [id number] Admission Performance, 1. [id number] Admission Performance, 1. [id number] Admission Performance , 1. [id number] Admission Performance, 1. [id number] Admission Performance, 1. [id number] Admission Performanc e, Code, H350. Bladder Continence (3-day assessment period), H400. Bowel Continence (3-day assessment period) were [electronically] signed by Dmitri Canales on FriAug 03 2019 10:15:20 GMT-0500 (Central Day light Time)
[2019-08-03] MEDS ORDERED: INFLUENZA VACCINE (for 3y+) 0.5 ML DOSE IMVAC ONE (12:00)
== END 2019-08-03 14:29 | disposition home or self-care (01) | DRG 65 ==
LOC: 5TH 07-22 18:14
PROVIDERS: ADMIT Psychiatry & Neurology Neurology with Special Qualifications in Child Neurology; ATTEND Psychiatry & Neurology Neurology with Special Qualifications in Child Neurology
DX: I63.89 Other cerebral infarction (principal); G81.94 Hemiplegia, unspecified affecting left nondominant side; N17.9 Acute kidney failure, unspecified; N39.0 Urinary tract infection, site not specified; R47.01 Aphasia; I10 Essential (primary) hypertension; I48.91 Unspecified atrial fibrillation; Z79.01 Long term (current) use of anticoagulants; E78.5 Hyperlipidemia, unspecified; N18.9 Chronic kidney disease, unspecified
CPT/HCPCS: 36415; 71045; 74230; 80048; 82040; 83735; 84134; 85025; 90471; 92507; 92523; 92610; 92611; 93005; 93970; 97110; 97112; 97116; 97127; 97161; 97530; 97542; J1644; Q2035